=== PATIENT | female | born 1950 | race African-American/Black ===

== ENCOUNTER 2018-09-08 17:01 | Inpatient (IN) | payer MEDICARE ==
--- NOTE | 2018-09-08 17:25 | ED ---
Psychiatric Complaint - HPI Summary HPI Summary: A 67 y/o female brought in by [facility] and police presents to [facility] with a chief complaint of being brought in on a 9.41. The patient was reportedly found walking in traffic. In the ED the patient is manic. She is speaking extremely fast saying things like I know, you know, they know when asked questions. Sometimes she speaks so fast that she makes incoherent sounds. At triage she rated her pain as a 0/10 in severity. She reportedly is a patient of Dr. Groves for partial seizures. - History Of Current Complaint Chief Complaint: EDMentalHealth Time Seen by Provider: 09/08/18 17:19 Hx Obtained From: Patient, EMS Onset/Duration: Sudden Onset, Lasting Hours, Still Present Timing: Hours Severity Initially: Mild Severity Currently: Mild Character: Manic Aggravating Factor(s): Nothing Alleviating Factor(s): Nothing Associated Signs And Symptoms: Positive: Paranoid Behavior Related History: Positive For: Prior Psychiatric Issues Has Suicidal: Denies: Thoughts Has Homicidal: Denies: Thoughts - Allergies/Home Medications Allergies/Adverse Reactions: Allergies Allergy/AdvReac Type Severity Reaction Status Date / Time aspirin Allergy Edema Verified 09/08/18 17:06 PMH/Surg Hx/FS Hx/Imm Hx Cardiovascular History: Denies: Hx Pacemaker/ICD Musculoskeletal History: Denies: Hx Osteoporosis Sensory History: Denies: Hx Hearing Aid Neurological History: Reports: Hx Seizures Psychiatric History: Reports: Hx Anxiety, Hx Depression, Hx Inpatient Treatment Denies: Hx Panic Disorder - Surgical History Surgery Procedure, Year, and Place: Cyst removed from right breast in '70s, right eye cataract Infectious Disease History: No Infectious Disease History: Denies: Traveled Outside the [place] in Last 30 Days - Family History Known Family History: Positive: Hypertension - mother - Social History Alcohol Use: None Substance Use Type: Reports: None Smoking Status (MU): Heavy Every Day Tobacco Smoker Type: Cigarettes Review of Systems Negative: Fever Psychological: Other - positive: Pt brought in on a 9.41, manic, was walking through traffic All Other Systems Reviewed And Are Negative: Yes Physical Exam - Summary Physical Exam Summary: Appearance: The patient is well-nourished in no acute distress and in no acute pain. Skin: The skin is warm and dry and skin color reflects adequate perfusion. HEENT: The head is normocephalic and atraumatic. The pupils are equal and reactive. The conjunctivae are clear and without drainage. Nares are patent and without drainage. Mouth reveals moist mucous membranes and the throat is without erythema and exudate. The external ears are intact. The ear canals are patent and without drainage. The tympanic membranes are intact. Neck: The neck is supple with full range of motion and non-tender. There are no carotid bruits. There is no neck vein distension. Respiratory: Chest is non-tender. Lungs are clear to auscultation and breath sounds are symmetrical and equal. Cardiovascular: Heart is regular rate and rhythm. There is no murmur or rub auscultated. There is no peripheral edema and pulses are symmetrical and equal. Abdomen: The abdomen is soft and non-tender. There are normal bowel sounds heard in all four quadrants and there is no organomegaly palpated. Musculoskeletal: There is no back tenderness noted. Extremities are non-tender with full range of motion. There is good capillary refill. There is no peripheral edema or calf tenderness elicited. Neurological: Patient is alert and oriented to person, place and time. The patient has symmetrical motor strength in all four extremities. Cranial nerves are grossly intact. Deep tendon reflexes are symmetrical and equal in all four extremities. Psychiatric: The patient has an appropriate affect and does not exhibit any anxiety or depression. Triage Information Reviewed: Yes Vital Signs On Initial Exam: Initial Vitals Temp Pulse Resp BP Pulse Ox 98 F 105 18 162/135 97 09/08/18 17:06 09/08/18 17:06 09/08/18 17:06 09/08/18 17:06 09/08/18 17:06 Vital Signs Reviewed: Yes Diagnostics - Vital Signs Vital Signs Temp Pulse Resp BP Pulse Ox 09/08/18 17:06 98 F 105 18 162/135 97 - Laboratory Result Diagrams: 09/08/18 18:16 09/08/18 18:16 Lab Statement: Any lab studies that have been ordered have been reviewed, and results considered in the medical decision making process. Course/Dx - Course Course Of Treatment: Ms. Love was found walking in traffic and presented to the emergency department quite obviously manic. It was difficult to tell if she was delusional as she had more of word salad. She has a history of partial seizures as well as delusional thinking. I spoke with Dr. Cortez as I have no way of knowing of these are unusual seizures today or if this is a psychiatric problem. It does appear to be more of a psychiatric problem. I treated her with 2 mg of IM Ativan to see if this were a seizure if it would break and to help calm her down to make it easier to deal with her aunt and relief of some of her distress. She did calm down some better her mental status didn't really change leading me to believe this is more likely functional rather than seizure. Dr. Cortez agreed and at this point we are attempting to medically clear her with labs for a mental health eval. - Differential Dx/Clinical Impression Provider Diagnosis: Kyra - Physician Notifications Discussed Care Of Patient With: Alcides Cortez Time Discussed With Above Provider: 17:50 Instructed by Provider To: Other - Dr. Cortez was informed about the patient Discharge - Sign-Out/Discharge Documenting (check all that apply): Sign-Out Patient Signing out patient TO: Bk Carranza - pending MHE Patient Received Moderate/Deep Sedation with Procedure: No - Discharge Plan Condition: Stable Referrals: Re Clark MD [Primary Care Provider] - - Billing Disposition and Condition Condition: STABLE - Attestation Statements Document Initiated by Scribe: Yes Documenting Scribe: Nuno Conde Provider For Whom Bethibaleks is Documenting (Include Credential): Anil Layton MD Scribe Attestation: INuno, scribed for Anil Layton MD on 09/08/18 at 1849. Scribe Documentation Reviewed: Yes Provider Attestation: The documentation as recorded by the Nuno puente accurately reflects the service I personally performed and the decisions made by me, Anil Layton MD Status of Scribe Document: Viewed
[2018-09-08] MEDS ORDERED: LORazepam INJ* 2 MG/ML 1 ML VIAL IM ONE (17:29)
[2018-09-08 18:26] LABS: ABS Basophils 0 10^3/ul (0-0.2); ABS Eosinophils 0 10^3/ul (0-0.6); ABS Lymphocytes 1.1 10^3/ul (1.0-4.8); ABS Monocytes 0.9 10^3/ul (0-0.8); ABS Neutrophils 9.4 10^3/ul (1.5-7.7); ABS Nucleated RBC 0 10^3/ul; Eosinophil % 0 %; Hematocrit 43 % (33-41); Hemoglobin 14.8 g/dL (12.0-16.0); Lymphocyte % 9.9 %; Mean Corpuscular HGB Conc 34 g/dL (31-36); Mean Corpuscular Hemoglobin 31 pg (27-31); Mean Corpuscular Volume 89 fL (80-97); Mean Platelet Volume 6.9 fL (7.4-10.4); Nucleated Red Blood Cells % 0.1; Platelet Count 460 10^3/uL (150-450); Red Blood Count 4.86 10^6 /uL (3.70-4.87); Red Cell Distribution Width 16 % (10.5-15); White Blood Count 11.5 10^3/uL (3.5-10.8)
[2018-09-08 18:42] LABS: ALT 31 U/L (7-52); AST 96 U/L (13-39); Albumin 4.7 g/dL (3.2-5.2); Albumin/Globulin Ratio 1.5 (1-3); Alkaline Phosphatase 76 U/L (34-104); Anion Gap 12 mmol/L (2-11); Blood Urea Nitrogen 17 mg/dL (6-24); CO2 Carbon Dioxide 28 mmol/L (22-32); Calcium 10.5 mg/dL (8.6-10.3); Chloride 98 mmol/L (101-111); EGFR African American 58.1 (>60); Globulin 3.1 g/dL (2-4); Glucose 120 mg/dL (70-100); Potassium 3.7 mmol/L (3.5-5.0); Sodium 138 mmol/L (135-145); Total Protein 7.8 g/dL (6.4-8.9)
--- NOTE | 2018-09-08 19:06 | ED ---
Progress - Progress Note Progress Note: Receiving sign out from Dr. Layton at shift change, pending MHE. Pt's condition has been stable. She will be transferred to another psychiatric facility. Pt will be signed out to Dr. Hampton at shift change, pending transfer. Pt is agreeable with this plan. Course/Dx - Diagnoses Provider Diagnoses: Unspecified psychosis - Provider Notifications Discussed Care Of Patient With: Zora Yun Time Discussed With Above Provider: 01:15 Instructed by Provider To: Other - There are no beds available, so pt will be transferred to another psychiatric facility. Discharge - Sign-Out/Discharge Documenting (check all that apply): Sign-Out Patient, Receiving Sign-Out Signing out patient TO: Warner Hampton Receiving patient FROM: Anil Layton Patient Received Moderate/Deep Sedation with Procedure: No - Discharge Plan Condition: Stable Disposition: PSYCHIATRIC FACILITY-OTHER Referrals: Re Clark MD [Primary Care Provider] - - Billing Disposition and Condition Condition: STABLE Disposition: Psychiatric Facility Other - Attestation Statements Document Initiated by Scribe: Yes Documenting Scribe: Fe Baum Provider For Whom Scribe is Documenting (Include Credential): Bk Carranza MD Scribe Attestation: Fe Reyna, scribed for Bk Carranza MD on 09/09/18 at 0359. Scribe Documentation Reviewed: Yes Provider Attestation: The documentation as recorded by the Fe puente accurately reflects the service I personally performed and the decisions made by me, Bk Carranza MD Status of Scribe Document: Viewed
[2018-09-08 19:09] LABS: Acetaminophen < 15 mcg/mL; Alcohol < 10 mg/dL (<10); Salicylate < 2.50 mg/dL (<30)
[2018-09-08 19:22] LABS: TSH (Thyroid Stimulating Horm) 0.79 mcIU/mL (0.34-5.60)
--- NOTE | 2018-09-09 07:11 | ED ---
Progress - Progress Note Progress Note: This patient was signed out from Dr. Carranza to Dr. Hampton upon shift change, pending transfer to another psychiatric facility. - Consult/PCP Time Called: 00:30 Course/Dx - Course Course Of Treatment: This patient was signed out from Dr. Carranza to Dr. Hampton upon shift change, pending transfer to another psychiatric facility. - Diagnoses Provider Diagnoses: Unspecified psychosis - Provider Notifications Time Discussed With Above Provider: 01:15 Instructed by Provider To: Other - There are no beds available, so pt will be transferred to another psychiatric facility. Discharge - Sign-Out/Discharge Documenting (check all that apply): Patient Departure Patient Received Moderate/Deep Sedation with Procedure: No - Discharge Plan Condition: Stable Disposition: PSYCHIATRIC FACILITY-OTHER Referrals: Re Clark MD [Primary Care Provider] - - Billing Disposition and Condition Condition: STABLE Disposition: Psychiatric Facility Other - Attestation Statements Document Initiated by Scribe: Yes Documenting Scribe: Rob Childers Provider For Whom Scribe is Documenting (Include Credential): Warner Hampton MD Scribe Attestation: Rob Reyna, scribed for Warner Hampton MD on 09/09/18 at 0742. Scribe Documentation Reviewed: Yes Provider Attestation: The documentation as recorded by the Rob puente accurately reflects the service I personally performed and the decisions made by Warner trejo MD Status of Scribe Document: Viewed
[2018-09-09] MEDS ORDERED: OXcarbazepine TAB(*) 300 MG PO ONE (08:29)
--- NOTE | 2018-09-09 10:45 | PN ---
ED Flex Patient Progress Note Date of Service: 09/09/18 Subjective: 67 y.o. single, AA female with a history of schizophrenia brought in on involuntary .41 status after being discovered ambulating in the road in a disorganized state. She remains delusional, paranoid and unable to care for herself. Objective: aging AA female lying in bed in scrubs, disorganized, responding to internal stimuli Assessment: Schizophrenia Plan: Patient requires involuntary psychiatric admission but no adult beds are available on the [facility]. Will refer to outside .39 receiving facility. Vital Signs Temp Pulse Resp BP Pulse Ox 98.6 F 87 18 100/81 94 09/09/18 01:00 09/09/18 07:16 09/09/18 07:16 09/09/18 07:16 09/09/18 07:16 Lab Results - Entire Visit 09/08/18 09/08/18 18:16 18:16 WBC 11.5 H RBC 4.86 Hgb 14.8 Hct 43 H MCV 89 MCH 31 MCHC 34 RDW 16 H Plt Count 460 H MPV 6.9 L Neut % (Auto) 82.2 Lymph % (Auto) 9.9 Mcduffie % (Auto) 7.6 Eos % (Auto) 0 Baso % (Auto) 0.3 Absolute Neuts (auto) 9.4 H Absolute Lymphs (auto) 1.1 Absolute Monos (auto) 0.9 H Absolute Eos (auto) 0 Absolute Basos (auto) 0 Absolute Nucleated RBC 0 Nucleated RBC % 0.1 Sodium 138 Potassium 3.7 Chloride 98 L Carbon Dioxide 28 Anion Gap 12 H BUN 17 Creatinine 1.13 H Est GFR ( Amer) 58.1 Est GFR (Non-Af Amer) 48.0 BUN/Creatinine Ratio 15.0 Glucose 120 H Calcium 10.5 H Total Bilirubin 0.50 AST 96 H ALT 31 Alkaline Phosphatase 76 Total Protein 7.8 Albumin 4.7 Globulin 3.1 Albumin/Globulin Ratio 1.5 TSH 0.79 Salicylates < 2.50 Acetaminophen < 15 Serum Alcohol < 10
[2018-09-09] MEDS ORDERED: Nicotine Inhaler* 10 MG AMP INH ONE (13:11)
[2018-09-09] MEDS ORDERED: Mouth Piece, Nicotine* 1 EACH CARTRIDGE ONE (14:40)
--- NOTE | 2018-09-09 19:29 | ED ---
Progress - Progress Note Progress Note: RECEIVING SIGN-OUT FROM DR. HAMPTON AT SHIFT CHANGE PENDING TRANSFER TO ACCEPTING FACILITY. Patient will be signed out to Dr. Kaufman at shift change pending transfer to accepting facility. - Consult/PCP Time Called: 00:30 Re-Evaluation - Re-Evaluation 1st re-eval Re-Evaluation Time: 11:36 Change: Unchanged Comment: Pt did not want to receive medications, and that she does not know who Dr. Maldonado is. She also asked for a cigarette after receiving her two IM injections. Course/Dx - Course Course Of Treatment: RECEIVING SIGN-OUT FROM DR. HAMPTON AT SHIFT CHANGE PENDING TRANSFER TO ACCEPTING FACILITY. Patient will be signed out to Dr. Kaufman at shift change pending transfer to accepting facility. - Diagnoses Provider Diagnoses: Acute psychosis, Acute exacerbation of chronic schizophrenia Discharge - Sign-Out/Discharge Documenting (check all that apply): Sign-Out Patient, Receiving Sign-Out Signing out patient TO: Arline Kaufman - pending transfer Receiving patient FROM: Warner Hampton - pending transfer acceptance Patient Received Moderate/Deep Sedation with Procedure: No - Discharge Plan Condition: Stable Disposition: ADMITTED TO [facility] - Billing Disposition and Condition Condition: STABLE Disposition: Admitted to [facility] - Attestation Statements Document Initiated by Scribe: Yes Documenting Scribe: Hayes Montero Provider For Whom Scribe is Documenting (Include Credential): Dr. Anil Brownlee MD Scribe Attestation: Hayes Reyna scribed for Dr. Anil Brownlee MD on 09/10/18 at 1829. Scribe Documentation Reviewed: Yes Provider Attestation: The documentation as recorded by the Hayes puente accurately reflects the service I personally performed and the decisions made by me, Dr. Anil Brownlee MD Status of Scribe Document: Viewed
--- NOTE | 2018-09-10 08:09 | ED ---
Progress - Progress Note Progress Note: Pt is a signout from Dr. Brownlee 0700 09/10/18 pending transfer to accepting psychiatric facility for acute psychosis. Presently, pt is refusing to take the risperidone this am and refused it last pm, asked me twice who I am, and then stated you are not even a real doctor. The pt does not know why she was brought in, and uses meditation to calm her thoughts. Home Medications Medication Instructions Recorded Confirmed Type Calcium Carbonate/Vitamin D3 1 tab PO BID 09/08/18 09/08/18 History [Calcium 500 + Vit D Caplet] OXcarbazepine TAB(*) [Trileptal 1,200 mg PO BID 09/08/18 09/08/18 History 300 mg TAB(*)] Appearance: well-appearing, no pain distress, well-nourished Skin: Warm, color reflects adequate perfusion, dry Head: Normal Head/Face inspection, atraumatic Eyes: Conjunctiva clear ENT: Normal inspection Neck: Supple, no nodes, no JVD Respiratory: Lungs clear, normal breath sounds, no respiratory distress Cardio: RRR, No murmur, pulses normal, brisk capillary refill Abdomen: Soft, nontender Bowel sounds: Present Musculoskeletal: Strength Intact/ROM intact, no calf tenderness, no edema. Psychological: Confused, rambling, tangential speech, restless, adamant about refusing medication, demanding a cigarette Neuro: Alert, muscle tone normal, no focal deficit - Consult/PCP Time Called: 00:30 Re-Evaluation - Re-Evaluation 1st re-eval Re-Evaluation Time: 11:36 Change: Unchanged Comment: Pt did not want to receive medications, and states that she does not know who Dr. Maldonado is. She also asked for a cigarette after receiving her two IM injections, Haldol 5mg IM and Benadryl 50mg IM, per Dr. Maldonado . Course/Dx - Course Course Of Treatment: Pt is a signout from Dr. Brownlee at 0700 on 09/10/18, pending transfer to accepting psychiatric facility for acute psychosis. Presently, pt is refusing to take risperidone prescribed by Dr. Maldonado, asked me twice who I am, and then stated you are not even a real doctor. The pt does not know why she was brought in, and uses meditation to calm her thoughts. Per Dr. Maldonado, the pt will be given 5mg Haldol and 50mg Benadryl. This is not a restraint, and may be given against her will. Pt is being admitted on a 9.39 status to [facility], as now a bed has opened up at [facility], after was in the ED overnight. Pt is admitted with a dx of acute psychosis. As of 1135, the pt did not want to receive medications, and states she does not know who Dr. Maldonado is. She also asked for a cigarette after receiving her two IM injections, and then eventually did rest peacefully on the stretcher. - Diagnoses Provider Diagnoses: Acute psychosis, Acute exacerbation of chronic schizophrenia Discharge - Sign-Out/Discharge Documenting (check all that apply): Patient Departure, Receiving Sign-Out Receiving patient FROM: Anil Brownlee - 09/10/18, 0700 - Discharge Plan Condition: Stable Disposition: PSYCHIATRIC FACILITY-[facility] - Billing Disposition and Condition Condition: STABLE Disposition: Psychiatric Facility [facility] - Attestation Statements Document Initiated by Scribe: Yes Documenting Scribe: Sarah Mendez Provider For Whom Enioe is Documenting (Include Credential): Dr. Arline Kaufman MD. Scribe Attestation: ISarah, scribed for Dr. Arline Kaufman MD. on 09/13/18 at 0630. Scribe Documentation Reviewed: Yes Provider Attestation: The documentation as recorded by the scribeSarah accurately reflects the service I personally performed and the decisions made by me, Dr. Arline Kaufman MD. Status of Scribe Document: Viewed Consult Consult: 1102 - Spoke with Dr. Maldonado about the pt's present status. He recommended administering 5mg Haldol and 50mg Benadryl. This is not a restraint and may be given against the pt's will.
[2018-09-10] MEDS ORDERED: risperiDONE TAB* 1 MG ONE (09:05)
[2018-09-10] MEDS: risperiDONE TAB* 2 MG PO SCH ×4 (09:08→21:21)
[2018-09-10] MEDS: OXcarbazepine TAB(*) 300 MG PO SCH ×3 (09:10→21:22)
[2018-09-10] MEDS ORDERED: Haloperidol INJ IV/IM* 5 MG/ML AMP IM ONE (11:04)
[2018-09-10] MEDS ORDERED: diPHENhydraMINE IV* 50 MG/ML 1 ml VIAL (BENADRYL) IM ONE (11:05)
[2018-09-10] MEDS ORDERED: Acetaminophen TAB* 325 MG PO PRN (11:39)
[2018-09-10] MEDS ORDERED: Al Hydrox/Mg Hydrox/Simet LIQ* 30 ML UDC PO PRN (11:39)
[2018-09-10] MEDS ORDERED: Nicotine Inhaler* 10 MG AMP INH PRN (11:39)
[2018-09-10] MEDS ORDERED: Nicotine PATCH 21 MG/24 HR* PATCH TRANSDERM ONE (11:40)
[2018-09-10] MEDS ORDERED: Mouth Piece, Nicotine* 1 EACH CARTRIDGE INH PRN (11:44)
[2018-09-10] MEDS: Nicotine Patch Removal NOTE FOLLOW UP SCH (22:26)
[2018-09-11 08:08] LABS: HDL Cholesterol 59.6 mg/dL
[2018-09-11] MEDS: OXcarbazepine TAB(*) 300 MG PO SCH ×2 (10:59→21:42)
[2018-09-11] MEDS: risperiDONE TAB* 2 MG PO SCH (10:59)
--- NOTE | 2018-09-11 17:11 | HP ---
Amended report to enter cosigning physician. HISTORY AND PHYSICAL: DATE OF ADMISSION: 09/11/18 PROVIDER: Aaliyah Ayers NP in Psychiatry. SUPERVISING PHYSICIAN: Gilbert Maldonado MD* (dictated by Aaliyah Ayers NP). JUSTIFICATION FOR ADMISSION: The patient is in need of 24-hour supervision and care secondary to gross disorganization. CHIEF COMPLAINT: Are you confused? "Maybe." HISTORY OF PRESENT ILLNESS: Jami is a 67-year-old single black woman with a history of schizophrenia who arrives brought in by the police and is here on a 9.39 status after being found walking around in the street and yelling at people. Jami is known to this unit. She was last here several years ago in 2009. Jami is not able to give a good history of what has happened to her recently. She states that she believes she lives on [address] when in fact she lives in [facility]. She does state she is not suicidal or homicidal. She states she has seizures occasionally and she does indeed have a seizure disorder for which she sees Dr. Potter. Jami is confused at this point. She has a hard time making any sense of what I am saying and can only answer briefly and gives details which appear to be confabulated. Dr. Cortez from neurology was consulted in the Emergency Department and determined that her presentation was psychiatric rather then seizure activity. Jami presented to the Emergency Department on 09/08/18 and was preparing to be transferred to another hospital but was admitted to this unit on 09/11/18. PAST PSYCHIATRIC HISTORY: She has been admitted to this hospital many times: twice in 1999, four times in 2000, three times in 2001, then once in 2006, once in 2008, once in 2009 and now in 2019. She is seen by Dr. Love at the [facility]. She is also seen by Cirilo Mckee RN. She does not remember Zoran Mckee, but I did speak to him and he states that she stopped taking medications about 2-1/2 years ago because she hated taking the injectable, what she was taking at the time was 50 mg every month of Haldol Decanoate, which was effective. She is not taking psychiatric medication at this time, but is taking 1500 mg of Trileptal daily for seizures and is managed by Dr. Potter. SOCIAL HISTORY: The social history is taken from prior history and physical in 2010. Jami graduated from high school. She went to college in [place] and then a different college in [employer] [facility]. She states her major was chemistry , math and physics. (Her education is validated by Zoran Mckee RN at the [facility]) At some point, she went to [employer] for 2 years to study as she wanted to go to a socialist country. She does not remember ever being in this hospital. She is unable to attend to many questions and tends to fall asleep periodically. Her insight is fair. Her speech is coherent, but limited. She smiles. Her affect is appropriate. She does not understand why she is here, how she got here. She is not employed. She is not . She does not have children. There are no legal charges pending against her. REVIEW OF SYMPTOMS: Jami reports feeling fatigued. She denies shortness of breath, heat or cold intolerance, chest pain or abdominal pain. She denies neurological symptoms. She denies fevers or changes in weight. PHYSICAL EXAMINATION VITAL SIGNS: On 09/10/18 at 1654, temperature is 98.2, pulse 67, respirations 16, O2 sat on room air 99%, blood pressure 118/56. For further exam data, please see the emergency department records which reflects a typical exam with concerns about seizure activity, which is not currently active. DIAGNOSTIC STUDIES/LAB DATA: There are many abnormalities including white blood cells high at 11.5, hematocrit high at 43, RDW high at 16, platelet count high at 460, MPV low at 6.9, absolute neutrophils 9.4, absolute monocytes 0.9. Chloride is low at 98, anion gap is high at 12, creatinine is high at 1.13, glucose is high at 120. Hemoglobin A1c is high at 5.7. Calcium is high at 10.5. AST is high at 96. Triglycerides are 76, cholesterol is 211, LDL cholesterol is 136, HDL cholesterol is 59.6. TSH is 0.79. Urine sample was not provided. MENTAL STATUS EXAMINATION: Physical Description: Jami is an average to short woman of average build who is wearing blue paper scrubs with a plaid, blue sweater on top of them. She is pleasant to talk to and reasonable; however , she is falling asleep throughout the conversation and tends to deflect questions because she does not know the proper answer. Her speech is soft and slow. She appears to be euthymic. She has a full range of affect. Her thought processes are normal. It is unclear if she is having delusions or hallucinations. She states she is not homicidal or suicidal. Her insight is poor. Her judgment is also likely poor. She is alert and oriented x3. She is not alert and oriented to her situation. DIAGNOSES: By history, she has schizophrenia, she also has seizure disorder. IMPRESSION: Jami is a 67-year-old woman with a history of schizophrenia, who comes to the hospital following being picked up by police for running around in the streets and shouting at people. She has a history of seizures and may have had a seizure on 09/09/18, the day she was brought to the hospital. PLAN: The patient is admitted to the adult behavioral health unit and placed on q.15-minute checks for her own safety. She is encouraged to participate in supportive milieu, individual and group therapies. Estimated length of stay is 5 to 7 days. We will titrate Haldol to efficacy and monitor for mood and thought content. Discharge planning will include involvement of outpatient providers. AALIYAH AYERS, HALLIE [id number]/[facility] #: [id number] JONATHAN
[2018-09-11] MEDS: Haloperidol TAB* 5 MG PO SCH (21:46)
[2018-09-11] MEDS: Nicotine Patch Removal NOTE FOLLOW UP SCH (21:46)
[2018-09-12] MEDS: OXcarbazepine TAB(*) 300 MG PO SCH ×2 (09:22→22:26)
--- NOTE | 2018-09-12 17:19 | PN ---
Subjective - Subjective Date of Service: 09/12/18 Service Type: 65260 Hosp care 15 min low complexity Subjective: Troy is seen in weekend coverage for NPP, Aaliyah Ayers. The patient is vague, paranoid and guarded. She is adherent with oxcarbazapine therapy but refusing haloperidol. She denies SI and has no active complaints other than not being able to smoke inside the hospital. "These patches and sticks don't work. I need one real cigarette." Objective - General Observations Appearance: Unkempt Appears Stated Age: Yes Stature: Short Posture: Slumped Eye Contact: Average Behavior/Activity: WNL, Stereotyped - Interaction Observations Attitude Towards Examiner: Mistrustful Stated Mood: Dysphoric, Irritable Affect: Blunted Speech Pattern/Tone: Clear Thought Process: Goal Directed Perception: WNL Thought Content: Paranoid Thought Process: Lethality: Paranoid Ideation Hallucination Type: Auditory Delusion Type: Persecution - Cognitive Function Orientation: A&O x 4 Level of Consciousness: Awake Cognition: WNL Estimated Intelligence: Normal Insight: Difficulty Acknowledging Presence of Psyciatric Problems Judgment Within Normal Limits: No Ability to Make Reasonable Decisions: Serverely Impaired - Medication Compliance Cooperative with Inpatient Medication Regimen: Partial - Group Participation Participates in Group Activities: No Assessment - Assessment Merits Inpatient Hospitalization: For Immediate Safety, For Stabilization Inpatient DSM-V Dx: F20.9 Clinical Impression: 67 y.o. AA female with a history of epilepsy and schizophrenia admitted due to bizarre, unsafe behavior in the community such as walking in traffic and yelling at people. Plan - Plan Treatment Plan: Name: TROY VAUGHAN Birthdate: 1950 [id number] Start oxcarbazepine 1200mg PO qhs and haloperidol 5mg PO qhs. Needs further inpatient care. Continued Medication Management: Start Medication Medications: Current Medications Acetaminophen (Tylenol Tab*) 650 mg PO Q4H PRN PRN Reason: for pain; or Temp >101 F Al Hydrox/Mg Hydrox/Simethicone (Maalox Plus*) 30 ml PO Q4H PRN PRN Reason: INDIGESTION Device (Nicotine Mouth Piece*) 1 each INH .USE W/ CARTRIDGE PRN PRN Reason: WITHDRAWAL - NICOTINE Haloperidol (Haldol Tab*) 5 mg PO BEDTIME [facility] Last Admin: 09/11/18 21:46 Dose: Not Given Nicotine (Nicotine Inhaler*) 10 mg INH Q2H PRN PRN Reason: CRAVING Oxcarbazepine (Trileptal Tab(*)) 1,200 mg PO BID [facility] Last Admin: 09/12/18 09:22 Dose: 1,200 mg Pharmacy Profile Note (Nicotine Patch Removal Note*) 1 note FOLLOW UP 2100 [facility] Last Admin: 09/11/18 21:46 Dose: Not Given - Discharge Plan Discharge Plan: Inpatient Hospitalization Lab Results - Lab Results Lab Results: 09/11/18 09/11/18 07:38 07:38 Hemoglobin A1c 5.7 H Triglycerides 76 Cholesterol 211 LDL Cholesterol 136 HDL Cholesterol 59.6
[2018-09-12] MEDS: Nicotine Patch Removal NOTE FOLLOW UP SCH (22:25)
[2018-09-12] MEDS: Haloperidol TAB* 5 MG PO SCH (22:25)
[2018-09-13] MEDS: OXcarbazepine TAB(*) 300 MG PO SCH ×2 (10:28→22:22)
[2018-09-13] MEDS: Haloperidol TAB* 5 MG PO SCH (21:58)
[2018-09-13] MEDS: Nicotine Patch Removal NOTE FOLLOW UP SCH (22:25)
[2018-09-14] MEDS: OXcarbazepine TAB(*) 300 MG PO SCH (12:59)
--- NOTE | 2018-09-14 15:55 | PN ---
Subjective - Subjective Date of Service: 09/14/18 Service Type: 46205 Hosp care 25 min moderate complexity Subjective: Patient presents as confused about oxcarbemazepine dose and surroundings. She requests that someone (on staff) go with her to her appointment then return. She asks me if I'm going outside, as if she is going to join me, when I walk by another time. Since friday evening, she has only been taking a portion of the prescribed dose. RN clarified dose with outpatient pharmacy of 1200mg in am and 1500mg qhs; this was last filled on 09/04/18. Neonatal Intensive Care Nurse phoned office of Dr Potter and medication was confirmed, last office visit in december 2017. Neonatal Intensive Care Nurse notifies patient and she states that she is taking 100mg tabs, 4 in the morning and 5 at bedtime. Patient accepted oral haloperidol last evening. Objective - General Observations Appearance: Disheveled Stature: WNL Posture: WNL Eye Contact: Average Behavior/Activity: WNL - Interaction Observations Attitude Towards Examiner: Confused Stated Mood: Euthymic Affect: Full Speech Pattern/Tone: Clear, Appropriate, Normal Volume Thought Process: Disorganized, Impoverished Perception: WNL Thought Content: WNL Hallucination Type: Denies Delusion Type: Denies - Cognitive Function Orientation: Confused Level of Consciousness: Alert Cognition: WNL Estimated Intelligence: Normal Insight: Difficulty Acknowledging Presence of Psyciatric Problems Ability to Make Reasonable Decisions: Serverely Impaired - Medication Compliance Cooperative with Inpatient Medication Regimen: Partial - Group Participation Participates in Group Activities: Partial Assessment - Assessment Merits Inpatient Hospitalization: For Immediate Safety, For Stabilization Inpatient DSM-V Dx: F20.9 Clinical Impression: 67 y.o. AA female with a history of epilepsy and schizophrenia admitted due to bizarre, unsafe behavior in the community such as walking in traffic and yelling at people. Plan - Plan Treatment Plan: Name: TROY VAUGHAN Birthdate: 1950 [id number] continue acute intensive psychiatric treatment. increase hs oxcarbazepine dose to 1500mg. continue am dose fo 1200mg. continue haloperidol 5mg qhs. discharge planning to include outpatient providers Continued Medication Management: Start Medication Medications: Current Medications Acetaminophen (Tylenol Tab*) 650 mg PO Q4H PRN PRN Reason: for pain; or Temp >101 F Al Hydrox/Mg Hydrox/Simethicone (Maalox Plus*) 30 ml PO Q4H PRN PRN Reason: INDIGESTION Device (Nicotine Mouth Piece*) 1 each INH .USE W/ CARTRIDGE PRN PRN Reason: WITHDRAWAL - NICOTINE Last Admin: 09/12/18 23:47 Dose: 1 each Haloperidol (Haldol Tab*) 5 mg PO BEDTIME [facility] Last Admin: 09/13/18 21:58 Dose: 5 mg Nicotine (Nicotine Inhaler*) 10 mg INH Q2H PRN PRN Reason: CRAVING Last Admin: 09/12/18 23:47 Dose: 10 mg Oxcarbazepine (Trileptal Tab(*)) 1,200 mg PO BID [facility] Last Admin: 09/14/18 12:59 Dose: 1,200 mg Pharmacy Profile Note (Nicotine Patch Removal Note*) 1 note FOLLOW UP 2100 [facility] Last Admin: 09/13/18 22:25 Dose: Not Given - Discharge Plan Discharge Plan: Inpatient Hospitalization
[2018-09-14] MEDS ORDERED: OXcarbazepine TAB(*) 300 MG PO SCH (21:00)
[2018-09-14] MEDS: Nicotine Patch Removal NOTE FOLLOW UP SCH (21:40)
[2018-09-14] MEDS: Haloperidol TAB* 5 MG PO SCH (21:40)
[2018-09-15] MEDS ORDERED: OXcarbazepine TAB(*) 300 MG PO SCH ×2 (09:00→21:00)
--- NOTE | 2018-09-15 11:12 | PN ---
BSU: Group Therapy Note - Service Type Service Type: 66211 Group Psychotherapy - Cognitive Behavioral Group Therapy ( CBT):Patient presented in CBT programming as disorganized and disruptive in discussion and needed repeated redirection to attend to presented materials.
--- NOTE | 2018-09-15 15:03 | PN ---
Subjective - Subjective Date of Service: 09/15/18 Service Type: 04708 Hosp care 25 min moderate complexity Subjective: Troy does not like the idea of taking the medications that have been ordered for her. She would like to take what she believes to be her outpatient doses ( 600 mg of Trileptal BID). While the doses of 1200 mg QAM and 1500 mg QHS have been confirmed with Dr. Potter of neurology, Troy is currently unable to agree with his opinion as she is somewhat paranoid and also forgetful of what has happened. Restarting Troy on 1200 mg and 1500 mg of Trileptal could be dangerous due to the high dosages, so she will be restarted on 600 mg BID. Objective - General Observations Appearance: Disheveled Appears Stated Age: Yes Stature: WNL Posture: Slumped Eye Contact: Intense Behavior/Activity: Impulsive - Interaction Observations Attitude Towards Examiner: Anxious, Defensive, Mistrustful, Disrespectful Stated Mood: Dysphoric, Irritable, Anxious, Angry Affect: Labile Speech Pattern/Tone: Clear, Pressured Thought Process: Goal Directed Perception: WNL Thought Content: Paranoid Hallucination Type: None Delusion Type: Persecution - Cognitive Function Orientation: A&O x 4 Level of Consciousness: Awake, Alert Cognition: Impaired Memory, Impaired Fund of Knowledge Estimated Intelligence: Normal Insight: Difficulty Acknowledging Presence of Psyciatric Problems Judgment Within Normal Limits: No Ability to Make Reasonable Decisions: Moderately Impaired - Medication Compliance Cooperative with Inpatient Medication Regimen: No - Group Participation Participates in Group Activities: Partial Assessment - Assessment Merits Inpatient Hospitalization: For Immediate Safety Inpatient DSM-V Dx: F20.9 Clinical Impression: 67 y.o. AA female with a history of epilepsy and schizophrenia admitted due to bizarre, unsafe behavior in the community such as walking in traffic and yelling at people. Plan - Plan Treatment Plan: Name: TROY VAUGHAN Birthdate: 1950 [id number] continue acute intensive psychiatric treatment. discharge planning to include outpatient providers As it is unclear what dose of Trileptal Troy was previously on, she will "restart" on 600 mg BID. This may help her begin to regain some insight into what her regular dosage is and will possibly keep her from having seizures on our unit. We may begin raising the dose on Friday to 600 QAM and 1200 QHS. Continued Medication Management: Continue Outpt Medication Medications: Current Medications Acetaminophen (Tylenol Tab*) 650 mg PO Q4H PRN PRN Reason: for pain; or Temp >101 F Al Hydrox/Mg Hydrox/Simethicone (Maalox Plus*) 30 ml PO Q4H PRN PRN Reason: INDIGESTION Device (Nicotine Mouth Piece*) 1 each INH .USE W/ CARTRIDGE PRN PRN Reason: WITHDRAWAL - NICOTINE Last Admin: 09/12/18 23:47 Dose: 1 each Haloperidol (Haldol Tab*) 5 mg PO BEDTIME [facility] Last Admin: 09/14/18 21:40 Dose: Not Given Nicotine (Nicotine Inhaler*) 10 mg INH Q2H PRN PRN Reason: CRAVING Last Admin: 09/12/18 23:47 Dose: 10 mg Oxcarbazepine (Trileptal Tab(*)) 600 mg PO BEDTIME [facility] Oxcarbazepine (Trileptal Tab(*)) 600 mg PO DAILY [facility] Pharmacy Profile Note (Nicotine Patch Removal Note*) 1 note FOLLOW UP 2100 [facility] Last Admin: 09/14/18 21:40 Dose: Not Given - Discharge Plan Discharge Plan: Outpatient [facility]
[2018-09-15] MEDS: Nystatin CREAM* 30 GM TOPICAL SCH (20:52)
[2018-09-15] MEDS: Haloperidol TAB* 5 MG PO SCH (20:57)
[2018-09-15] MEDS: Nicotine Patch Removal NOTE FOLLOW UP SCH (20:57)
[2018-09-16 07:42] VITALS: BP 158/80
[2018-09-16] MEDS ORDERED: OXcarbazepine TAB(*) 300 MG PO SCH ×2 (09:00→21:00)
[2018-09-16] MEDS: Nystatin CREAM* 30 GM TOPICAL SCH ×2 (10:43→21:08)
--- NOTE | 2018-09-16 11:21 | PN ---
BSU: Group Therapy Note - Service Type Service Type: 08314 Group Psychotherapy - Cognitive Behavioral Group Therapy ( CBT):Patient presented in CBT programming as disorganized and disruptive in discussion and needed repeated redirection to attend to presented materials.
[2018-09-16] MEDS ORDERED: OXcarbazepine TAB(*) 300 MG PO ONE (14:00)
--- NOTE | 2018-09-16 14:07 | PN ---
Subjective - Subjective Date of Service: 09/16/18 Service Type: 45030 Hosp care 25 min moderate complexity Subjective: Jami sits by the windows and is cheerfully remarking about the view. She is pleasant and easy to converse with and apologizes for our strained interaction yesterday. We discuss Trileptal dosing and she's willing to go to 900 mg BID until her next Dr. Potter appointment. It seems she interprets psychotic moments as seizures and believes Haldol will be unhelpful as she never felt anything from it in the past. I suggested that she might have more thought clarity. She said she would take the medication under the supervision of Zoran Mckee RN at [facility], but this is not an option. She stated she would try the Haldol, but the conditions under which she would try them can't be met in the hospital. Still, we will offer Haldol PO. Objective - General Observations Appearance: Disheveled Appears Stated Age: Yes Stature: Overweight Posture: Slumped Eye Contact: Intense Behavior/Activity: WNL - Interaction Observations Attitude Towards Examiner: Cooperative, Ingratiating Stated Mood: Euthymic Affect: Full Speech Pattern/Tone: Clear Thought Process: Coherent, Goal Directed, Tangential Perception: WNL Thought Content: Paranoid Hallucination Type: None Delusion Type: Control - Cognitive Function Orientation: A&O x 4 Level of Consciousness: Awake, Alert, Appropriate Cognition: WNL Estimated Intelligence: Normal Insight: Difficulty Acknowledging Presence of Psyciatric Problems Judgment Within Normal Limits: No Ability to Make Reasonable Decisions: Mildly Impaired - Medication Compliance Cooperative with Inpatient Medication Regimen: Partial - Group Participation Participates in Group Activities: No Assessment - Assessment Merits Inpatient Hospitalization: For Immediate Safety Inpatient DSM-V Dx: F20.9 Clinical Impression: 67 y.o. AA female with a history of epilepsy and schizophrenia admitted due to bizarre, unsafe behavior in the community such as walking in traffic and yelling at people. BSU: Problem List - Patient Problems (1) Schizophrenia Current Visit: Yes Status: Acute Code(s): F20.9 - SCHIZOPHRENIA, UNSPECIFIED SNOMED Code(s): 75027162 Plan - Plan Treatment Plan: Name: JAMI VAUGHAN Birthdate: 1950 [id number] continue acute intensive psychiatric treatment. discharge planning to include outpatient providers As it is unclear what dose of Trileptal Jami was previously on, she will "restart" on 600 mg BID. This may help her begin to regain some insight into what her regular dosage is and will possibly keep her from having seizures on our unit. 09/16/18: Jami agrees to Trileptal 900 mg BID. She is declining Haldol at the current time, but has been out of the hospital for years and has been not taking Haldol for at least 2 years. We will send her home tomorrow with many appointments in place to keep her safe and healthy. Continued Medication Management: Continue Outpt Medication Medications: Current Medications Acetaminophen (Tylenol Tab*) 650 mg PO Q4H PRN PRN Reason: for pain; or Temp >101 F Al Hydrox/Mg Hydrox/Simethicone (Maalox Plus*) 30 ml PO Q4H PRN PRN Reason: INDIGESTION Device (Nicotine Mouth Piece*) 1 each INH .USE W/ CARTRIDGE PRN PRN Reason: WITHDRAWAL - NICOTINE Last Admin: 09/12/18 23:47 Dose: 1 each Haloperidol (Haldol Tab*) 5 mg PO BEDTIME [facility] Nicotine (Nicotine Inhaler*) 10 mg INH Q2H PRN PRN Reason: CRAVING Last Admin: 09/12/18 23:47 Dose: 10 mg Nystatin (Nystatin Cream*) 1 applic TOPICAL BID [facility] Last Admin: 09/16/18 10:43 Dose: Not Given Oxcarbazepine (Trileptal Tab(*)) 900 mg PO BEDTIME [facility] Oxcarbazepine (Trileptal Tab(*)) 900 mg PO DAILY [facility] Pharmacy Profile Note (Nicotine Patch Removal Note*) 1 note FOLLOW UP 2100 [facility] Last Admin: 09/15/18 20:57 Dose: Not Given - Discharge Plan Discharge Plan: Outpatient Follow Up Outpatient Program: [facility]
--- NOTE | 2018-09-16 16:25 | PN ---
BSU: Group Therapy Note - Service Type Service Type: [id number] Group Psychotherapy - Medication Education Group: Patient was attentive and participatory in group, and remained in good behavioral control. Patient expressed positive insights regarding relevant treatment interventions. Patient stated understanding of material discussed and had appropriate questions. Towards the end of group, patient vocal about conspiracy theories.
[2018-09-16] MEDS: Haloperidol TAB* 5 MG PO SCH ×2 (21:07→22:13)
[2018-09-16] MEDS: Nicotine Patch Removal NOTE FOLLOW UP SCH (21:10)
[2018-09-17] MEDS: Nystatin CREAM* 30 GM TOPICAL SCH (08:27)
[2018-09-17] MEDS ORDERED: OXcarbazepine TAB(*) 300 MG PO SCH (09:00)
[2018-09-17] MEDS ORDERED: Haloperidol Decanoate* 50 MG/ML AMP ONE (09:57)
[2018-09-17] MEDS ORDERED: Haloperidol Decanoate* 50 MG/ML AMP IM ONE (10:00)
--- NOTE | 2018-09-17 19:59 | DS ---
CC: [facility]; Dr. Potter; Dr. Clark * DISCHARGE SUMMARY: DATE OF ADMISSION: 09/10/18 DATE OF DISCHARGE: 09/17/18 PROVIDER: Aaliyah Ayers NP, in Psychiatry. SUPERVISING PHYSICIAN: Dr. Gilbert Maldonado.* (DICTATED BY AALIYAH AYERS NP ) DIAGNOSIS: Schizophrenia. CONDITION AT THE TIME OF DISCHARGE: Improved, psychiatrically cleared, stable. Jami participated in some groups, was largely isolative to herself. She has done well here psychiatrically. She did accept a Haldol Decanoate 50 mg injection. She will be attending [facility]. MENTAL STATUS EXAMINATION: At the time of discharge, Jami is calm, cooperative, and makes good eye contact. She is alert and oriented x4. Her grooming is good. Her speech pace is normal. Her thought processes are logical. She is delusional regarding electromagnetic waves, but she denies AH, VH, SI, and HI. Her insight is fair. Her judgment is good at this time. She is willing to follow up and she is urged to see her therapist, Zoran Mckee. DISCHARGE INSTRUCTIONS TO THE PATIENT: A. Medications: 1. Haldol Decanoate 50 mg every 28 days. 2. Nystatin cream topical, but she has declined this. It should have been b.i.d. 3. Trileptal 900 mg b.i.d. B. Diet is regular. C. Activities: As tolerated. Jami is a smoker, but she has declined a referral to the [facility] Smokers' Quitline at this time. If she decides to access this free service in the future, she can contact the quitline toll- free at [phone]. There are no studies pending at the time of discharge. D. Followup care: She has appointments with [facility] on 09/24/18 at 2 o'clock and at 2:30. She has an appointment at [facility] on 10/01/18 at 10:[address] Re Clark on 09/21/18 at 2:40 p.m. E. Substance abuse followup is not indicated. HOSPITAL COURSE: Part A: Chief complaint: Are you confused, "maybe." Jami is a 67-year-old black woman with a history of schizophrenia, who arrives, brought in by police and is there on a 9.39 status after being found walking around in the street and yelling at people. Jami is known to this unit. She was last here several years ago in 2009. Jami is not able to give a good history of what has happened to her recently. She states that she believes she lives [place] [address] when in fact she lives in [facility]. She does state she is not suicidal or homicidal. She states she has seizures occasionally and she does indeed have a seizure disorder for which she sees Dr. Potter. Jami is confused at this point. She has a hard time making sense of what I am saying and could only answer briefly and gives details which appeared to be confabulated. Dr. Cortez from Neurology was consulted in the emergency department and determined that her presentation was psychiatric rather than seizure activity. Jami presented to the emergency department on 09/08/18 and was preparing to be transferred to another hospital, but was admitted to this unit on 09/11/18. Part B: Psychiatric treatment was rendered. Jami was admitted to the adult behavioral unit and placed on 15-minute checks for safety. She did advance to 30- minute checks and staff pass privileges. Jami did well on the unit. She was seclusive to herself for the most part, but did come out for meals and interacted well with peers at that time. Jami had not been compliant with her medications in the outpatient setting and upon learning that her dose of Trileptal here would be 1200 mg in the morning and 1500 mg at night, she became quite upset, called me names, and asserted that I was lying. Although Jami had a strong reaction, she did eventually agree to take 600 mg twice a day and then the next day agreed to take 900 mg twice a day and to see Dr. Potter for her appointment later on in September. It was difficult to get Jami to take an antipsychotic. She does not believe she has a psychotic disorder. She believes that the electromagnetic radiation and waves in the air are altering things around her, none of which she can be particularly specific about other than to say that "You can't possibly understand." Still she keeps those beliefs under wraps for a good portion of most conversations and then reveals them and indicates that it is perfectly normal. Jami is now put back on an antipsychotic, Haldol Decanoate. Her hemoglobin A1c is 5.7, triglycerides are 76, cholesterol is 211, LDL cholesterol is 136, HDL cholesterol is 59.6. There were no consults entered for Jami. She is significantly improved. When she got here, she was confused, she was frightened and she was not making much sense. At this point, she is coherent and clear with the exception of the delusions about electromagnetic waves. AALIYAH AYERS, STATION INSTALLER AND REPAIRER [id number]/CPS #: [id number] JONATHAN
== END 2018-09-17 11:27 | disposition home or self-care (01) | DRG 885 ==
LOC: ED 17:01 → BSU 09-10 16:22
PROVIDERS: ADMIT Psychiatry & Neurology Psychiatry; ATTEND Psychiatry & Neurology Psychiatry
PROC: GZHZZZZ Group Psychotherapy (ICD-10-PCS; principal; 2018-09-15)
DX: F20.9 Schizophrenia, unspecified (principal); F41.9 Anxiety disorder, unspecified; F32.9 Major depressive disorder, single episode, unspecified; F17.210 Nicotine dependence, cigarettes, uncomplicated; G40.909 Epilepsy, unspecified, not intractable, without status epilepticus; Z98.41 Cataract extraction status, right eye; Z88.8 Allergy status to other drugs, medicaments and biological substances; Z82.49 Family history of ischemic heart disease and other diseases of the circulatory system; Z91.14 Patient's other noncompliance with medication regimen
CPT/HCPCS: 36415; 80053; 80061; 80320; 80329; 83036; 84443; 85025; 85660; 90853; 93005; 99222; 99231; 99232; 99238; 99285; A9270-GY; G0480; J1200; J1630; J1631; J2060

== ENCOUNTER 2019-03-08 12:02 | Emergency (ER) | payer MEDICAID, MEDICARE ==
[2019-03-08 12:48] LABS: ABS Basophils 0.1 10^3/ul (0-0.2); ABS Eosinophils 0.1 10^3/ul (0-0.6); ABS Monocytes 0.9 10^3/ul (0-0.8); ABS Neutrophils 5.5 10^3/ul (1.5-7.7); Eosinophil % 0.6 %; Hematocrit 40 % (35-47); Hemoglobin 13.9 g/dL (12.0-16.0); Lymphocyte % 23.8 %; Mean Corpuscular HGB Conc 35 g/dL (31-36); Mean Corpuscular Hemoglobin 32 pg (27-31); Mean Corpuscular Volume 90 fL (80-97); Mean Platelet Volume 7.1 fL (7.4-10.4); Nucleated Red Blood Cells % 0.1; Platelet Count 425 10^3/uL (150-450); Red Cell Distribution Width 16 % (10-15); White Blood Count 8.5 10^3/uL (3.5-10.8)
[2019-03-08 12:58] LABS: ALT 13 U/L (7-52); AST 18 U/L (13-39); Albumin 4.5 g/dL (3.2-5.2); Albumin/Globulin Ratio 1.6 (1-3); Alkaline Phosphatase 76 U/L (34-104); Anion Gap 14 mmol/L (2-11); BUN/Creatinine Ratio 26.6 (8-20); Blood Urea Nitrogen 25 mg/dL (6-24); CO2 Carbon Dioxide 26 mmol/L (22-32); Chloride 99 mmol/L (101-111); EGFR African American 71.7 (>60); EGFR Non-African American 59.2 (>60); Globulin 2.8 g/dL (2-4); Glucose 88 mg/dL (70-100); Potassium 3.2 mmol/L (3.5-5.0); Sodium 139 mmol/L (135-145); Total Protein 7.3 g/dL (6.4-8.9)
[2019-03-08 13:36] LABS: Acetaminophen < 15 mcg/mL; Alcohol < 10 mg/dL (<10); Salicylate < 2.50 mg/dL (<30)
[2019-03-08 13:36] LABS: Urine Appearance Cloudy; Urine Bacteria Absent (Absent); Urine Bilirubin Negative (Negative); Urine Blood Negative (Negative); Urine Color Amber; Urine Glucose Negative (Negative); Urine Ketones 1+ (Negative); Urine Nitrite Negative (Negative); Urine Protein 2+(100 mg/dL) (Negative); Urine Red Blood Cell Absent (Absent); Urine Squamous Epithelial Cell Present (Absent); Urine Urobilinogen Negative (Negative); Urine White Blood Cell Trace(0-5/hpf) (Absent)
[2019-03-08 13:50] LABS: TSH (Thyroid Stimulating Horm) 0.63 mcIU/mL (0.34-5.60)
[2019-03-08 13:55] LABS: Urine Benzodiazepine Screen None Detected (None Detect); Urine Opiates Screen None Detected (None Detect)
[2019-03-08 14:03] VITALS: BP 173/84
--- NOTE | 2019-03-08 17:28 | ED ---
Psychiatric Complaint - HPI Summary HPI Summary: This patient is a 68-year-old female who presents to the ED with acute psychosis. Patient states she has been having radioactive material around her apartment. She states Raz Gross has been spraying her apt with radioactive material and would like to be tested for this. She states she would like "I want" to test her for this. She denies any other symptoms. She denies taking any medication, denies smoking or alcohol history. Denies SI or HI. - History Of Current Complaint Chief Complaint: EDAltMentalStatus Time Seen by Provider: 03/08/19 12:04 Hx Obtained From: Patient ?: No Onset/Duration: Sudden Onset Timing: Constant Severity Initially: Moderate Severity Currently: Moderate Aggravating Factor(s): Nothing Alleviating Factor(s): Nothing Associated Signs And Symptoms: Positive: Hallucinating - Risk Factor(s) Completed Suicide Risk Factors: Negative - Allergies/Home Medications Allergies/Adverse Reactions: Allergies Allergy/AdvReac Type Severity Reaction Status Date / Time aspirin Allergy Edema Verified 03/09/19 00:08 PMH/Surg Hx/FS Hx/Imm Hx Previously Healthy: Yes Cardiovascular History: Denies: Hx Pacemaker/ICD Musculoskeletal History: Denies: Hx Osteoporosis Sensory History: Denies: Hx Contacts or Glasses, Hx Hearing Aid Opthamlomology History: Denies: Hx Contacts or Glasses Neurological History: Reports: Hx Seizures Psychiatric History: Reports: Hx Anxiety, Hx Depression, Hx Inpatient Treatment , Other Psychiatric Issues/Disorders Denies: Hx Panic Disorder - Surgical History Surgery Procedure, Year, and Place: Cyst removed from right breast in '70s, right eye cataract - Immunization History Hx Pertussis Vaccination: No Immunizations Up to Date: Yes Infectious Disease History: No Infectious Disease History: Denies: Traveled Outside the [place] in Last 30 Days - Family History Known Family History: Positive: Hypertension - mother - Social History Occupation: Employed Full-time Lives: Alone Alcohol Use: None Hx Substance Use: No Substance Use Type: Reports: None Hx Tobacco Use: Yes Smoking Status (MU): Heavy Every Day Tobacco Smoker Type: Cigarettes Review of Systems Negative: Fever, Chills, Fatigue, Skin Diaphoresis Negative: Palpitations, Chest Pain Negative: Shortness Of Breath, Cough Genitourinary: Negative Positive: no symptoms reported, see HPI Negative: Arthralgia, Myalgia Positive: Other - states her skin is radioactive Neurological: Negative All Other Systems Reviewed And Are Negative: Yes Physical Exam Triage Information Reviewed: Yes Vital Signs On Initial Exam: Initial Vitals Temp Pulse Resp BP Pulse Ox 97.7 F 82 16 174/102 96 03/08/19 12:11 03/08/19 12:11 03/08/19 12:11 03/08/19 12:11 03/08/19 12:11 Vital Signs Reviewed: Yes Appearance: Positive: Well-Appearing, Well-Nourished Skin: Positive: Skin Color Reflects Adequate Perfusion Head/Face: Positive: Normal Head/Face Inspection Eyes: Positive: EOMI Neck: Positive: Supple, No Lymphadenopathy Respiratory/Lung Sounds: Positive: Clear to Auscultation, Breath Sounds Present Cardiovascular: Positive: RRR, Pulses are Symmetrical in both Upper and Lower Extremities Musculoskeletal: Positive: Normal, Strength/ROM Intact Neurological: Positive: Alert, Oriented to Person Place, Time, Speech Normal Psychiatric: Positive: Other - hallucination behavior Diagnostics - Vital Signs Vital Signs Temp Pulse Resp BP Pulse Ox 03/08/19 15:11 97.6 F 77 16 173/84 99 03/08/19 14:01 97.6 F 77 16 173/84 99 03/08/19 12:11 97.7 F 82 16 174/102 96 - Laboratory Lab Results: Lab Results 03/08/19 03/08/19 03/08/19 Range/Units 12:26 12:26 13:20 WBC 8.5 (3.5-10.8) 10^3/uL RBC 4.40 (3.70-4.87) 10^6 /uL Hgb 13.9 (12.0-16.0) g/dL Hct 40 (35-47) % MCV 90 (80-97) fL MCH 32 H (27-31) pg MCHC 35 (31-36) g/dL RDW 16 H (10-15) % Plt Count 425 (150-450) 10^3/uL MPV 7.1 L (7.4-10.4) fL Neut % (Auto) 64.4 % Lymph % (Auto) 23.8 % [place] % (Auto) 10.2 % Eos % (Auto) 0.6 % Baso % (Auto) 1.0 % Absolute Neuts (auto) 5.5 (1.5-7.7) 10^3/ul Absolute Lymphs (auto) 2.0 (1.0-4.8) 10^3/ul Absolute Monos (auto) 0.9 H (0-0.8) 10^3/ul Absolute Eos (auto) 0.1 (0-0.6) 10^3/ul Absolute Basos (auto) 0.1 (0-0.2) 10^3/ul Absolute Nucleated RBC 0.0 10^3/ul Nucleated RBC % 0.1 Sodium 139 (135-145) mmol/L Potassium 3.2 L (3.5-5.0) mmol/L Chloride 99 L (101-111) mmol/L Carbon Dioxide 26 (22-32) mmol/L Anion Gap 14 H (2-11) mmol/L BUN 25 H (6-24) mg/dL Creatinine 0.94 (0.51-0.95) mg/dL Est GFR ( Amer) 71.7 (>60) Est GFR (Non-Af Amer) 59.2 (>60) BUN/Creatinine Ratio 26.6 H (8-20) Glucose 88 (70-100) mg/dL Calcium 10.0 (8.6-10.3) mg/dL Total Bilirubin 0.60 (0.2-1.0) mg/dL AST 18 (13-39) U/L ALT 13 (7-52) U/L Alkaline Phosphatase 76 (34-104) U/L Total Protein 7.3 (6.4-8.9) g/dL Albumin 4.5 (3.2-5.2) g/dL Globulin 2.8 (2-4) g/dL Albumin/Globulin Ratio 1.6 (1-3) TSH 0.63 (0.34-5.60) mcIU/mL Urine Color Estephanie Urine Appearance Cloudy Urine pH 5.0 (5-9) Ur Specific [place] 1.030 (1.010-1.030) Urine Protein 2+(100 mg/dl) A (Negative) Urine Ketones 1+ A (Negative) Urine Blood Negative (Negative) Urine Nitrate Negative (Negative) Urine Bilirubin Negative (Negative) Urine Urobilinogen Negative (Negative) Ur Leukocyte Esterase Negative (Negative) Urine WBC (Auto) Trace(0-5/hpf) (Absent) Urine RBC (Auto) Absent (Absent) Ur Squamous Epith Cells Present A (Absent) Urine Bacteria Absent (Absent) Hyaline Casts Present A (Absent) Urine Glucose Negative (Negative) Salicylates < 2.50 (<30) mg/dL Urine Opiates Screen (None Detect) Acetaminophen < 15 mcg/mL Ur Barbiturates Screen (None Detect) Ur Phencyclidine Scrn (None Detect) Ur Amphetamines Screen (None Detect) U Benzodiazepines Scrn (None Detect) Urine Cocaine Screen (None Detect) U Cannabinoids Screen (None Detect) Serum Alcohol < 10 (<10) mg/dL 03/08/19 Range/Units 13:20 WBC (3.5-10.8) 10^3/uL RBC (3.70-4.87) 10^6 /uL Hgb (12.0-16.0) g/dL Hct (35-47) % MCV (80-97) fL MCH (27-31) pg MCHC (31-36) g/dL RDW (10-15) % Plt Count (150-450) 10^3/uL MPV (7.4-10.4) fL Neut % (Auto) % Lymph % (Auto) % [place] % (Auto) % Eos % (Auto) % Baso % (Auto) % Absolute Neuts (auto) (1.5-7.7) 10^3/ul Absolute Lymphs (auto) (1.0-4.8) 10^3/ul Absolute Monos (auto) (0-0.8) 10^3/ul Absolute Eos (auto) (0-0.6) 10^3/ul Absolute Basos (auto) (0-0.2) 10^3/ul Absolute Nucleated RBC 10^3/ul Nucleated RBC % Sodium (135-145) mmol/L Potassium (3.5-5.0) mmol/L Chloride (101-111) mmol/L Carbon Dioxide (22-32) mmol/L Anion Gap (2-11) mmol/L BUN (6-24) mg/dL Creatinine (0.51-0.95) mg/dL Est GFR ( Amer) (>60) Est GFR (Non-Af Amer) (>60) BUN/Creatinine Ratio (8-20) Glucose (70-100) mg/dL Calcium (8.6-10.3) mg/dL Total Bilirubin (0.2-1.0) mg/dL AST (13-39) U/L ALT (7-52) U/L Alkaline Phosphatase (34-104) U/L Total Protein (6.4-8.9) g/dL Albumin (3.2-5.2) g/dL Globulin (2-4) g/dL Albumin/Globulin Ratio (1-3) TSH (0.34-5.60) mcIU/mL Urine Color Urine Appearance Urine pH (5-9) Ur Specific [place] (1.010-1.030) Urine Protein (Negative) Urine Ketones (Negative) Urine Blood (Negative) Urine Nitrate (Negative) Urine Bilirubin (Negative) Urine Urobilinogen (Negative) Ur Leukocyte Esterase (Negative) Urine WBC (Auto) (Absent) Urine RBC (Auto) (Absent) Ur Squamous Epith Cells (Absent) Urine Bacteria (Absent) Hyaline Casts (Absent) Urine Glucose (Negative) Salicylates (<30) mg/dL Urine Opiates Screen None detected (None Detect) Acetaminophen mcg/mL Ur Barbiturates Screen None detected (None Detect) Ur Phencyclidine Scrn None detected (None Detect) Ur Amphetamines Screen None detected (None Detect) U Benzodiazepines Scrn None detected (None Detect) Urine Cocaine Screen None detected (None Detect) U Cannabinoids Screen None detected (None Detect) Serum Alcohol (<10) mg/dL Result Diagrams: 03/08/19 12:26 03/08/19 12:26 Lab Statement: Any lab studies that have been ordered have been reviewed, and results considered in the medical decision making process. Course/Dx - Course Course Of Treatment: This patient presents to the ED ball with hallucinations, stating she is currently radioactive and would like someone to check her skin. Mental health examination performed she is diagnosed with schizophrenia with medication noncompliance. Patient is discharged in good condition and will f/u with her outpatient therapist. - Differential Dx/Clinical Impression Provider Diagnosis: Schizophrenia Discharge ED - Sign-Out/Discharge Documenting (check all that apply): Patient Departure Patient Received Moderate/Deep Sedation with Procedure: No - Discharge Plan Condition: Fair Disposition: HOME Patient Education Materials: Schizophrenia (ED) Referrals: [facility] [Outside] (Please follow up on 2018) Re Clark MD [Primary Care Provider] - - Billing Disposition and Condition Condition: FAIR Disposition: Home
== END 2019-03-08 15:00 | disposition home or self-care (01) ==
LOC: ED 12:02
DX: F20.9 Schizophrenia, unspecified (principal); F41.9 Anxiety disorder, unspecified; F32.9 Major depressive disorder, single episode, unspecified; F17.210 Nicotine dependence, cigarettes, uncomplicated; Z88.6 Allergy status to analgesic agent
CPT/HCPCS: 36415; 80053; 80307; 80320; 80329; 81003; 81015; 84443; 85025; 87086; 99283; G0480

== ENCOUNTER → 2019-03-08 15:53 | Emergency (ER) | payer MEDICAID, MEDICARE | END | disposition left against medical advice (07) | LOC: ED 15:53 | DX: Z53.21 Procedure and treatment not carried out due to patient leaving prior to being seen by health care provider (principal) ==

== ENCOUNTER 2019-03-08 23:56 | Emergency (ER) | payer MEDICAID, MEDICARE ==
[2019-03-09 01:00] LABS: ABS Basophils 0.1 10^3/ul (0-0.2); ABS Eosinophils 0.1 10^3/ul (0-0.6); ABS Lymphocytes 1.7 10^3/ul (1.0-4.8); ABS Monocytes 0.8 10^3/ul (0-0.8); ABS Neutrophils 4.8 10^3/ul (1.5-7.7); Eosinophil % 1.1 %; Hematocrit 36 % (35-47); Hemoglobin 12.6 g/dL (12.0-16.0); Lymphocyte % 23.1 %; Mean Corpuscular HGB Conc 35 g/dL (31-36); Mean Corpuscular Hemoglobin 31 pg (27-31); Mean Corpuscular Volume 91 fL (80-97); Mean Platelet Volume 6.8 fL (7.4-10.4); Nucleated Red Blood Cells % 0.2; Platelet Count 368 10^3/uL (150-450); Red Blood Count 4.01 10^6 /uL (3.70-4.87); Red Cell Distribution Width 16 % (10-15); White Blood Count 7.5 10^3/uL (3.5-10.8)
--- NOTE | 2019-03-09 01:02 | ED ---
Psychiatric Complaint - HPI Summary HPI Summary: The patient is a 68 y/o F arriving by ambulance to [facility] from [place] with chief complaint of sudden onset sensation of something crawling under her skin immediately [employer]. She reports she had been sleeping after coming home from the hospital earlier today when she woke up and had a feeling that there were bugs or snakes crawling under her skin. She is not experiencing the sensations now, and she denies any rashes. She additionally c/o SI, per nurse. Currently, her symptoms are rated 0/10 in severity. No recent illnesses. PMHx: epilepsy, anxiety, depression. Heavy every day cigarette smoker, no EtOH, no substance use. Medications reviewed. Allergies noted. - History Of Current Complaint Time Seen by Provider: 03/08/19 23:59 Hx Obtained From: Patient Onset/Duration: Sudden Onset, Still Present Timing: Minutes Severity Initially: Moderate Severity Currently: Moderate Character: Manic Aggravating Factor(s): Nothing Alleviating Factor(s): Nothing Associated Signs And Symptoms: Positive: Hallucinating Has Suicidal: Reports: Thoughts - Allergies/Home Medications Allergies/Adverse Reactions: Allergies Allergy/AdvReac Type Severity Reaction Status Date / Time aspirin Allergy Edema Verified 03/10/19 15:28 PMH/Surg Hx/FS Hx/Imm Hx Endocrine/Hematology History: Denies: Hx Diabetes Cardiovascular History: Denies: Hx Pacemaker/ICD Musculoskeletal History: Denies: Hx Osteoporosis Sensory History: Denies: Hx Contacts or Glasses, Hx Hearing Aid Opthamlomology History: Denies: Hx Contacts or Glasses Neurological History: Reports: Hx Seizures Psychiatric History: Reports: Hx Anxiety, Hx Depression, Hx Inpatient Treatment , Other Psychiatric Issues/Disorders Denies: Hx Panic Disorder - Surgical History Surgical History: Yes Surgery Procedure, Year, and Place: Cyst removed from right breast in '70s, right eye cataract Infectious Disease History: No Infectious Disease History: Denies: Traveled Outside the [place] in Last 30 Days - Family History Known Family History: Positive: Hypertension - mother - Social History Alcohol Use: None Hx Substance Use: No Substance Use Type: Reports: None Hx Tobacco Use: Yes Smoking Status (MU): Heavy Every Day Tobacco Smoker Type: Cigarettes Review of Systems Negative: Rash Psychological: Other - sensation of bugs crawling under skin, SI All Other Systems Reviewed And Are Negative: Yes Physical Exam - Summary Physical Exam Summary: Appearance: Well-appearing, Well-nourished, lying in bed comfortably Skin: Warm, dry, no obvious rash Eyes: sclera anicteric, no conjunctival pallor ENT: mucous membranes moist, pharynx appears normal Neck: Supple, nontender Respiratory: Clear to auscultation, no signs of respiratory distress Cardiovascular: Normal S1, S2. No murmurs. Normal distal pulses in tibial and radial bilaterally. Abdomen: Soft, nontender, normal active bowel sounds present Musculoskeletal: Normal, Strength/ROM Intact Neurological: A&Ox3, awake and alert, mentation is normal, speech is fluent and appropriate Psychiatric: Thought process is disjointed and tangential, Appears somewhat manic, Is suffering from delusions of insects of snakes crawling under her skin Triage Information Reviewed: Yes Vital Signs On Initial Exam: Initial Vitals Temp Pulse Resp BP Pulse Ox 97.9 F 69 16 171/90 97 03/09/19 00:01 03/09/19 00:01 03/09/19 00:01 03/09/19 00:01 03/09/19 00:01 Vital Signs Reviewed: Yes Diagnostics - Vital Signs Vital Signs Temp Pulse Resp BP Pulse Ox 03/09/19 00:01 97.9 F 69 16 171/90 97 - Laboratory Result Diagrams: 03/09/19 00:52 03/09/19 00:52 Lab Statement: Any lab studies that have been ordered have been reviewed, and results considered in the medical decision making process. Re-Evaluation - Re-Evaluation First Eval Re-Evaluation Time: 00:10 Change: Unchanged Comment: Pt is medically clear for MHE. Course/Dx - Course Course Of Treatment: Pt is a 68 y/o F with cc of sudden onset sensations of insects and snakes under the skin tonight. Upon physical exam, the pt appears to have a disjointed and tangential thought process and seems manic as she is suffering from delusions of insects of snakes crawling under her skin. Blood work reveals RDW of 16, MPV of 6.8, potassium of 2.8, BUN/creatinine of 31.2, and glucose of 104 but results are otherwise unremarkable. Toxicology report is negative for salicylates, acetaminophen, and serum alcohol. Pt is medically clear for MHE at 0010. MHE performed, and Bri Rdz reports Dr. Jackson, psychiatry, has cleared pt for discharge with dx of tactile hallucinations and plan for outpatient treatment. Pt noted to be at baseline. She understands and agrees with plan. Mental health staff will d/c pt. - Differential Dx/Clinical Impression Provider Diagnosis: Tactile hallucinations - Physician Notifications Discussed Care Of Patient With: Bri Rdz - mental health printing table worker Time Discussed With Above Provider: 03:40 Instructed by Provider To: Other - Bri reports that Dr. Jackson, psychiatry agrees with d/c with dx of tactile hallucinations and plan for outpatient treatment. Discharge ED - Sign-Out/Discharge Documenting (check all that apply): Patient Departure - Patient will be discharged home. Patient Received Moderate/Deep Sedation with Procedure: No - Discharge Plan Condition: Stable Disposition: HOME Patient Education Materials: Psychiatric Hallucinations (ED) Referrals: Re Clark MD [Medical Doctor] - - Billing Disposition and Condition Condition: STABLE Disposition: Home - Attestation Statements Document Initiated by Scribe: Yes Documenting Scribe: Mitzi Tracy Provider For Whom Ranjan is Documenting (Include Credential): Dr. Anil Brownlee MD Scribe Attestation: Mitzi Reyna scribed for Dr. Anil Brownlee MD on 03/14/19 at 1220. Scribe Documentation Reviewed: Yes Provider Attestation: The documentation as recorded by the Mitzi puente accurately reflects the service I personally performed and the decisions made by me, Dr. Anil Brownlee MD Status of Scribe Document: Viewed
[2019-03-09 01:23] LABS: ALT 12 U/L (7-52); AST 17 U/L (13-39); Albumin 3.9 g/dL (3.2-5.2); Albumin/Globulin Ratio 1.6 (1-3); Alkaline Phosphatase 63 U/L (34-104); Anion Gap 9 mmol/L (2-11); BUN/Creatinine Ratio 31.2 (8-20); Blood Urea Nitrogen 24 mg/dL (6-24); CO2 Carbon Dioxide 26 mmol/L (22-32); Calcium 8.8 mg/dL (8.6-10.3); Chloride 105 mmol/L (101-111); EGFR African American 90.2 (>60); EGFR Non-African American 74.5 (>60); Globulin 2.5 g/dL (2-4); Glucose 104 mg/dL (70-100); Potassium 2.8 mmol/L (3.5-5.0); Sodium 140 mmol/L (135-145); Total Protein 6.4 g/dL (6.4-8.9)
[2019-03-09 01:30] LABS: Acetaminophen < 15 mcg/mL; Alcohol < 10 mg/dL (<10); Salicylate < 2.50 mg/dL (<30)
[2019-03-09 01:46] LABS: TSH (Thyroid Stimulating Horm) 0.46 mcIU/mL (0.34-5.60)
[2019-03-09 03:51] VITALS: BP 164/89
== END 2019-03-09 04:17 | disposition home or self-care (01) ==
LOC: ED 23:56
DX: R44.2 Other hallucinations (principal); F17.210 Nicotine dependence, cigarettes, uncomplicated; F41.9 Anxiety disorder, unspecified; F32.9 Major depressive disorder, single episode, unspecified
CPT/HCPCS: 36415; 80053; 80320; 80329; 84443; 85025; 99284; G0480

== ENCOUNTER 2019-03-10 15:19 | Inpatient (IN) | payer MEDICARE ==
--- NOTE | 2019-03-10 16:15 | ED ---
Psychiatric Complaint - HPI Summary HPI Summary: This patient is a 63 year old F presenting to ED with a chief complaint of hallucinations since weeks ago. Patient states she is able to disappear and become invisible. She thinks that people have been stealing her talent and methods of becoming invisible, and this makes her very upset. Patient denies SI/ HI, fever. The patient rates the pain 0/10 in severity. Symptoms aggravated by nothing. Symptoms alleviated by nothing. - History Of Current Complaint Chief Complaint: EDMentalHealth Time Seen by Provider: 03/10/19 15:39 Hx Obtained From: Patient Onset/Duration: Lasting Weeks, Still Present Timing: Constant Severity Initially: Mild Severity Currently: Mild Character: Angry Aggravating Factor(s): Nothing Alleviating Factor(s): Nothing Associated Signs And Symptoms: Positive: Hallucinating Related History: Positive For: Prior Psychiatric Issues Has Suicidal: Denies: Thoughts Has Homicidal: Denies: Thoughts - Allergies/Home Medications Allergies/Adverse Reactions: Allergies Allergy/AdvReac Type Severity Reaction Status Date / Time aspirin Allergy Edema Verified 03/10/19 15:28 Home Medications: Home Medications NK [No Home Medications Reported] 03/10/19 [History Confirmed 03/10/19] PMH/Surg Hx/FS Hx/Imm Hx Endocrine/Hematology History: Denies: Hx Diabetes Cardiovascular History: Denies: Hx Pacemaker/ICD Musculoskeletal History: Denies: Hx Osteoporosis Sensory History: Denies: Hx Contacts or Glasses, Hx Hearing Aid Opthamlomology History: Denies: Hx Contacts or Glasses Neurological History: Reports: Hx Seizures Psychiatric History: Reports: Hx Anxiety, Hx Depression, Hx Inpatient Treatment , Other Psychiatric Issues/Disorders Denies: Hx Eating Disorder, Hx Panic Disorder, Hx of Violent Episodes Against Others - Surgical History Surgery Procedure, Year, and Place: Cyst removed from right breast in '70s, right eye cataract Infectious Disease History: No Infectious Disease History: Denies: Traveled Outside the [place] in Last 30 Days - Family History Known Family History: Positive: Hypertension - mother - Social History Alcohol Use: None Hx Substance Use: No Substance Use Type: Reports: None Hx Tobacco Use: Yes Smoking Status (MU): Heavy Every Day Tobacco Smoker Type: Cigarettes Review of Systems Negative: Fever Psychological: Other - Negative SI/HI All Other Systems Reviewed And Are Negative: Yes Physical Exam - Summary Physical Exam Summary: VITAL SIGNS: Reviewed. GENERAL: Patient is a well-developed and nourished F who is lying comfortable in the stretcher. Patient is not in any acute respiratory distress. HEAD AND FACE: No signs of trauma. No ecchymosis, hematomas or skull depressions. No sinus tenderness. EYES: PERRLA, EOMI x 2, No injected conjunctiva, no nystagmus. EARS: Hearing grossly intact. Ear canals and tympanic membranes are within normal limits. MOUTH: Oropharynx within normal limits. NECK: Supple, trachea is midline, no adenopathy, no JVD, no carotid bruit, no c- spine tenderness, neck with full ROM. CHEST: Symmetric, no tenderness at palpation. LUNGS: Clear to auscultation bilaterally. No wheezing or crackles. CVS: Regular rate and rhythm, S1 and S2 present, no murmurs or gallops appreciated. ABDOMEN: Soft, non-tender. No signs of distention. No rebound, no guarding, and no masses palpated. Bowel sounds are normal. EXTREMITIES: FROM in all major joints, no edema, no cyanosis or clubbing. NEURO: Alert and oriented x 3. No acute neurological deficits. Speech is normal and follows commands. SKIN: Dry and warm. PSYCH: Depressed, quiet, and denies any suicidal thoughts or plan. No homicidal thoughts or plan. Triage Information Reviewed: Yes Vital Signs On Initial Exam: Initial Vitals Temp Pulse Resp BP Pulse Ox 98.1 F 76 17 147/78 98 03/10/19 15:25 03/10/19 15:25 03/10/19 15:25 03/10/19 15:25 03/10/19 15:25 Vital Signs Reviewed: Yes Diagnostics - Vital Signs Vital Signs Temp Pulse Resp BP Pulse Ox 03/10/19 15:25 98.1 F 76 17 147/78 98 - Laboratory Result Diagrams: 03/10/19 17:25 03/10/19 17:25 Lab Statement: Any lab studies that have been ordered have been reviewed, and results considered in the medical decision making process. Course/Dx - Course Assessment/Plan: Blood work w/o a significant abnormality. She is medically cleared. She is awaiting a MHE. Patient is hemodynamically stable and A+O x 3. Patient was signed out to Dr. Vicente at shift change at 1900 on 03/10/19 pending MHE. - Differential Dx/Clinical Impression Differential Diagnosis/HQI/PQRI: Positive: Acute Psychosis Provider Diagnosis: Psychosis Discharge ED - Sign-Out/Discharge Documenting (check all that apply): Sign-Out Patient Signing out patient TO: Marly Vicente - Discharge Plan Condition: Stable Disposition: PSYCHIATRIC FACILITY-[facility] - Attestation Statements Document Initiated by Scribe: Yes Documenting Scribe: Jason Armando Provider For Whom Scribe is Documenting (Include Credential): Say Rousseau MD Scribe Attestation: Jason eRyna, scribed for Say Rousseau MD on 03/11/19 at 1852. Scribe Documentation Reviewed: Yes Provider Attestation: The documentation as recorded by the Jason puente accurately reflects the service I personally performed and the decisions made by , Say Rousseau MD Status of Scribe Document: Viewed
[2019-03-10 17:33] LABS: ABS Eosinophils 0.2 10^3/ul (0-0.6); ABS Lymphocytes 2.5 10^3/ul (1.0-4.8); ABS Monocytes 0.6 10^3/ul (0-0.8); ABS Neutrophils 4.1 10^3/ul (1.5-7.7); Eosinophil % 2.1 %; Hematocrit 37 % (35-47); Hemoglobin 12.6 g/dL (12.0-16.0); Lymphocyte % 33.8 %; Mean Corpuscular HGB Conc 34 g/dL (31-36); Mean Corpuscular Hemoglobin 31 pg (27-31); Mean Corpuscular Volume 91 fL (80-97); Nucleated Red Blood Cells % 0.2; Platelet Count 386 10^3/uL (150-450); Red Blood Count 4.03 10^6 /uL (3.70-4.87); Red Cell Distribution Width 16 % (10-15); White Blood Count 7.4 10^3/uL (3.5-10.8)
[2019-03-10 17:51] LABS: ALT 16 U/L (7-52); AST 17 U/L (13-39); Albumin 4.1 g/dL (3.2-5.2); Albumin/Globulin Ratio 1.6 (1-3); Alkaline Phosphatase 65 U/L (34-104); Anion Gap 8 mmol/L (2-11); BUN/Creatinine Ratio 17.5 (8-20); Blood Urea Nitrogen 11 mg/dL (6-24); CO2 Carbon Dioxide 30 mmol/L (22-32); Calcium 9.2 mg/dL (8.6-10.3); Chloride 104 mmol/L (101-111); EGFR African American 113.7 (>60); Globulin 2.5 g/dL (2-4); Glucose 100 mg/dL (70-100); Potassium 2.8 mmol/L (3.5-5.0); Sodium 142 mmol/L (135-145); Total Protein 6.6 g/dL (6.4-8.9)
[2019-03-10 18:00] LABS: Acetaminophen < 15 mcg/mL; Alcohol < 10 mg/dL (<10); Salicylate < 2.50 mg/dL (<30)
[2019-03-10 18:15] LABS: TSH (Thyroid Stimulating Horm) 0.26 mcIU/mL (0.34-5.60)
--- NOTE | 2019-03-10 19:09 | ED ---
Progress - Progress Note Progress Note: Pt is a sign-out from Dr. Rousseau to Dr. Vicente at 19:00 03/10/19 shift change. Pt transferred to the annex 19:28. At 21:48, transport coordinator Leigh reports that the patient's case was reviewed by Dr. Jackson, patient will be admitted to [facility] under 939 status with a Dx of psychosis. Course/Dx - Course Course Of Treatment: Pt is a sign-out from Dr. Rousseau to Dr. Vicente at 19:00 03/10 shift change. Pt transferred to the annex 19:28. At 21:48, transport coordinator Leigh reports that the patient's case was reviewed by Dr. Jackson, patient will be admitted to [facility] under 939 status with a Dx of psychosis. - Diagnoses Provider Diagnoses: Psychosis Discharge ED - Sign-Out/Discharge Documenting (check all that apply): Patient Departure - admit , Receiving Sign- Out Receiving patient FROM: Say Rousseau Patient Received Moderate/Deep Sedation with Procedure: No - Discharge Plan Condition: Stable Disposition: PSYCHIATRIC FACILITY-[facility] - Billing Disposition and Condition Condition: STABLE Disposition: Psychiatric Facility [facility] - Attestation Statements Document Initiated by Scribe: Yes Documenting Scribe: Mykel Ma Provider For Whom Bethibaleks is Documenting (Include Credential): Marly Vicente MD. Scribe Attestation: Mykel Reyna, scribed for Marly Vicente MD. on 03/10/19 at 2248. Scribe Documentation Reviewed: Yes Provider Attestation: The documentation as recorded by the Mykel puente accurately reflects the service I personally performed and the decisions made by mi, Marly Vicente MD. Status of Scribe Document: Viewed Consult Consult: At 21:48, transport coordinator Leigh reports that the patient's case was reviewed by Dr. Jackson, patient will be admitted to [facility] under 939 status with a Dx of psychosis.
[2019-03-11] MEDS ORDERED: Nicotine* 2MG (FRUIT FLAVOR) GUM PO PRN (00:54)
[2019-03-11] MEDS ORDERED: Acetaminophen TAB* 325 MG PO PRN (00:54)
[2019-03-11 08:56] LABS: HDL Cholesterol 61.2 mg/dL
[2019-03-11] MEDS ORDERED: OXcarbazepine TAB(*) 300 MG PO SCH (10:00)
[2019-03-11] MEDS ORDERED: OXcarbazepine TAB(*) 300 MG PO ONE (10:23)
[2019-03-11] MEDS: Multivitamins/Minerals TAB PO SCH (11:07)
[2019-03-11] MEDS: Nicotine PATCH 21 MG/24 HR* PATCH TRANSDERM SCH (11:07)
[2019-03-11] MEDS: Al Hydrox/Mg Hydrox/Simet LIQ* 30 ML UDC PO PRN ×2 (12:34→17:31)
[2019-03-11] MEDS: Calcium Citrate TAB* 200 MG PO SCH (12:35)
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
[2019-03-11] MEDS: OXcarbazepine TAB(*) 300 MG PO SCH (20:04)
[2019-03-11] MEDS ORDERED: Nicotine Patch Removal NOTE PATCH OFF SCH (21:00)
[2019-03-12] MEDS: OXcarbazepine TAB(*) 300 MG PO SCH (08:39)
[2019-03-12] MEDS: Calcium Citrate TAB* 200 MG PO SCH (08:39)
[2019-03-12] MEDS ORDERED: Pneumococcal *Vac Polyvalent 0.5 ML VIAL IM ONE (09:00)
[2019-03-12] MEDS ORDERED: Influenza VAC *QUAD* 2019-20* 0.5 ML SYRINGE IM ONE (09:00)
[2019-03-12 09:09] VITALS: BP 182/70
[2019-03-12] MEDS: Nicotine PATCH 21 MG/24 HR* PATCH TRANSDERM SCH (09:33)
[2019-03-12] MEDS: Multivitamins/Minerals TAB PO SCH (09:33)
[2019-03-12] MEDS ORDERED: Haloperidol Decanoate* 50 MG/ML AMP IM SCH (10:30)
--- NOTE | 2019-03-15 11:57 | DS ---
CC: [facility]; Yina Serna; Dr. Love * DISCHARGE SUMMARY: DATE OF ADMISSION: 03/10/19 DATE OF DISCHARGE: 03/12/19 PROVIDER: Aaliyah Ayers NP in psychiatry. SUPERVISING PHYSICIAN: Dr. Gilbert Maldonado.* (DICTATED BY AALIYAH AYERS NP ) DIAGNOSIS: Schizophrenia. CONDITION AT THE TIME OF DISCHARGE: Improved, psychiatrically cleared, stable. Jami did not participate in groups, but was mildly social with peers. She is agreeable to being discharged. She has done well here psychiatrically, improving due to good sleep. She did tolerate the injection of Haldol decanoate 50 mg well. She is being referred to [facility]. MENTAL STATUS EXAM: At the time of discharge, Jami is calm, cooperative, and makes good eye contact. She is alert and oriented x4. Her grooming is good. Her speech pace is normal. Her thought processes are not always logical , but she is safe. She is psychotic and delusional, but again, these have been issues for her for years and she remains safe, and she is safer with the addition of an antipsychotic. She denies suicidal and homicidal ideation. Her insight is poor. Her judgment is fair. She is willing to follow up and urged to see a therapist at [facility]. DISCHARGE INSTRUCTIONS TO THE PATIENT: A. Medications: 1. Haloperidol decanoate 50 mg q.28 days. Dispensed once on the day of discharge, which was 03/12/19. NEXT DUE APRIL 08. 2. Oxcarbazepine 1200 mg b.i.d. This is for seizure disorder. B. Diet is regular. C. Activities are as tolerated. She is a smoker, but she has declined a referral to the [place] [employer] Quit Line at this time. If she decides to access this free service in the future, she can contact the quit line toll free at . There are no studies pending at the time of discharge. D. Followup care: She has appointments at [facility] on 08/04 at 9:30 with Yina Serna. She has a followup appointment with Dr. Love on 03/18/19 at 2:30 p.m. She is also recommended to follow up with her primary care provider within 30 days of discharge. E. Disposition: She is being discharged back to [facility], where she lives. F. Substance abuse followup is not indicated. HOSPITAL COURSE: Part A: Chief Complaint: "Male entities are sticking their organ in my ear or my nose." The patient is 68 years old. She states she is a black female with a history of schizoaffective disorder who arrives by ambulance and is here on a 9.39 status after coming to the emergency department 4 times on 03/08/19 and being unable to tolerate her own delusions any longer. Jami has a series of delusions including having entities, whom she says that she enjoys interacting with until she perceives that they are putting their penises in her ears, nose, and vagina. She states that she often enjoys interacting with these entities. She says that her ancestors sent her and her here on slave ships so that she and her could bear witness to events that are occurring right now. She is unable to be more specific about what these entities are. As she is talking during her pauses, she nods off and begins to snore a little bit. She says she is interested in going home today, if not then by Friday. She does not want to be here more than a week. She says she is willing to take her seizure medication, which is Trileptal, but she is not willing to take Haldol, either tablets or injections. Part B: Psychiatric treatment was rendered. Jami was admitted to the adult behavioral unit and placed on 15-minute checks for her own safety. Jami did well on the unit in that she was safe and in behavioral control. She interacted with peers reasonably well. She spent a lot of time in bed covered up and resting, which she noted was helpful. We discussed at some length the benefits of taking the Haldol decanoate injection. We discussed that the thoughts she was having that were so troublesome would be less intense and that she might feel less pressure in her mind to have these thoughts that are unwelcome. Eventually, Jami stated she would take the injection and on 03/12/19, she took 50 mg of Haldol decanoate by injection, which should last approximately 28 days. NEXT DUE APRIL 11. She stated, "I don't want to fight with you." She is agreeable to discharge. She remains delusional, but she states she feels much better having gotten sleep. She states in a manner that suggests a confession that she has "not slept well in years." She has not been following up with her neurologist, but states she is willing to take the medication for seizures (oxcarbazepine). She said her last seizure was 2 weeks ago. Jami remains disorganized, but is safe and states that she is feeling better. She is not suicidal. She is eager to go home and she asserts that she feels much better than she did upon admission. AALIYAH AYERS, HALLIE [id number]/[facility] #: [id number] JONATHAN
== END 2019-03-12 13:45 | disposition home or self-care (01) | DRG 885 ==
LOC: ED 15:19 → BSU 21:40
PROVIDERS: ADMIT Psychiatry & Neurology Psychiatry; ATTEND Psychiatry & Neurology Psychiatry
DX: F25.0 Schizoaffective disorder, bipolar type (principal); F17.210 Nicotine dependence, cigarettes, uncomplicated; F41.9 Anxiety disorder, unspecified; F32.9 Major depressive disorder, single episode, unspecified; Z98.41 Cataract extraction status, right eye; Z82.49 Family history of ischemic heart disease and other diseases of the circulatory system; Z88.8 Allergy status to other drugs, medicaments and biological substances
CPT/HCPCS: 36415; 80053; 80061; 80307; 80320; 80329; 81003; 81015; 83036; 84443; 85025; 87086; 99222; 99238; 99283; 99284; A9270-GY; G0480; J1631

== ENCOUNTER 2020-09-19 18:45 | Observation (INO) ==
[2020-09-19] MEDS ORDERED: Haloperidol 5 mg/ml SDV IV/IM 5 MG/ML AMP IM ONE (19:08)
[2020-09-19] MEDS ORDERED: LORazepam 2 mg VIAL 1 ml IM ONE (19:08)
[2020-09-19] MEDS ORDERED: diPHENhydraMINE IV 50 MG/ML 1 ml VIAL (BENADRYL) IM ONE (19:08)
[2020-09-19] MEDS ORDERED: LORazepam 2 mg VIAL 1 ml ONE (19:17)
[2020-09-19] MEDS ORDERED: diPHENhydraMINE IV 50 MG/ML 1 ml VIAL (BENADRYL) ONE (19:17)
[2020-09-19] MEDS ORDERED: Haloperidol 5 mg/ml SDV IV/IM 5 MG/ML AMP ONE (19:17)
[2020-09-19 21:49] LABS: ABS Eosinophils 0.1 10^3/ul (0-0.6); ABS Lymphocytes 1.7 10^3/ul (1.0-4.8); ABS Monocytes 0.8 10^3/ul (0-0.8); ABS Neutrophils 8.7 10^3/ul (1.5-7.7); Eosinophil % 0.7 %; Hematocrit 33 % (35-47); Hemoglobin 11.6 g/dL (12.0-16.0); Lymphocyte % 15.3 %; Mean Corpuscular HGB Conc 35 g/dL (31-36); Mean Corpuscular Hemoglobin 31 pg (27-31); Mean Corpuscular Volume 89 fL (80-97); Mean Platelet Volume 7.2 fL (7.4-10.4); Nucleated Red Blood Cells % 0.1; Platelet Count 342 10^3/uL (150-450); Red Blood Count 3.69 10^6 /uL (3.70-4.87); Red Cell Distribution Width 16 % (10-15); White Blood Count 11.4 10^3/uL (3.5-10.8)
[2020-09-19 22:07] LABS: ALT 69 U/L (7-52); AST 183 U/L (13-39); Albumin 3.9 g/dL (3.2-5.2); Albumin/Globulin Ratio 1.6 (1-3); Alkaline Phosphatase 65 U/L (34-104); Anion Gap 11 mmol/L (2-11); BUN/Creatinine Ratio 34.4 (8-20); Blood Urea Nitrogen 62 mg/dL (6-24); CO2 Carbon Dioxide 26 mmol/L (22-32); Chloride 99 mmol/L (101-111); EGFR African American 33.8 (>60); EGFR Non-African American 27.9 (>60); Globulin 2.4 g/dL (2-4); Glucose 112 mg/dL (70-100); Potassium 2.8 mmol/L (3.5-5.0); Sodium 136 mmol/L (135-145); Total Protein 6.3 g/dL (6.4-8.9)
[2020-09-19 22:08] LABS: Acetaminophen < 15 mcg/mL; Alcohol, S < 10 mg/dL (<10); Salicylate < 2.50 mg/dL (<30)
[2020-09-19 22:21] LABS: TSH Ultra Thyroid Stim Horm 0.45 mcIU/mL (0.34-5.60)
[2020-09-20 02:17] LABS: Urine Appearance Cloudy; Urine Bilirubin Negative (Negative); Urine Blood 3+ (Negative); Urine Color Yellow; Urine Glucose Negative (Negative); Urine Ketones Trace (Negative); Urine Nitrite Negative (Negative); Urine Protein 1+(30 mg/dL) (Negative); Urine Urobilinogen Negative (Negative)
[2020-09-20 02:19] LABS: Urine Benzodiazepine Screen None Detected (None Detect); Urine Cannabinoids Screen None Detected (None Detect); Urine Opiates Screen None Detected (None Detect)
[2020-09-20 02:34] LABS: Urine Bacteria 1+ (Absent); Urine Granular Casts Present (Absent); Urine Red Blood Cell Trace(0-2/hpf) (Absent); Urine Squamous Epithelial Cell Present (Absent); Urine White Blood Cell Trace(0-5/hpf) (Absent)
[2020-09-20] MEDS ORDERED: Potassium Chlor 20 meq TAB.ER PO ONE ×2 (03:02→07:01)
[2020-09-20] MEDS ORDERED: NS 0.9% 1000 ml BAG 1,000 ML IV ONE ×3 (03:04→07:11)
[2020-09-20] MEDS ORDERED: Lorazepam PYXIS KEY PRN (08:35)
[2020-09-20] MEDS ORDERED: LORazepam 2 mg VIAL 1 ml IV PUSH PRN (08:35)
[2020-09-20] MEDS ORDERED: Ondansetron 4 mg VIAL 2 MG/ML 2 ml VIAL IV PRN (09:00)
[2020-09-20 09:50] LABS: BUN/Creatinine Ratio 40.4 (8-20); Blood Urea Nitrogen 36 mg/dL (6-24); C Reactive Protein 76.13 mg/L (<8.01); CO2 Carbon Dioxide 24 mmol/L (22-32); Calcium 7.9 mg/dL (8.6-10.3); Chloride 105 mmol/L (101-111); EGFR African American 76.1 (>60); EGFR Non-African American 62.9 (>60); Glucose 166 mg/dL (70-100); Sodium 136 mmol/L (135-145)
[2020-09-20] MEDS ORDERED: Lactated Ringers 1000 ml BAG 1,000 ML IV SCH (10:00)
[2020-09-20 10:05] LABS: Anion Gap 7 mmol/L (2-11)
[2020-09-20] MEDS: Heparin 5000 UNITS/ML 1 mL VIAL SUBCUT SCH ×2 (13:07→21:09)
[2020-09-21] MEDS: Heparin 5000 UNITS/ML 1 mL VIAL SUBCUT SCH ×2 (05:27→13:13)
[2020-09-21 05:51] LABS: ABS Basophils 0.1 10^3/ul (0-0.2); ABS Eosinophils 0.4 10^3/ul (0-0.6); ABS Lymphocytes 1.8 10^3/ul (1.0-4.8); ABS Monocytes 0.8 10^3/ul (0-0.8); ABS Neutrophils 5.2 10^3/ul (1.5-7.7); Eosinophil % 4.4 %; Hematocrit 34 % (35-47); Hemoglobin 11.6 g/dL (12.0-16.0); Lymphocyte % 22.1 %; Mean Corpuscular HGB Conc 34 g/dL (31-36); Mean Corpuscular Hemoglobin 31 pg (27-31); Mean Corpuscular Volume 91 fL (80-97); Mean Platelet Volume 7.3 fL (7.4-10.4); Platelet Count 385 10^3/uL (150-450); Red Blood Count 3.77 10^6 /uL (3.70-4.87); Red Cell Distribution Width 16 % (10-15); White Blood Count 8.3 10^3/uL (3.5-10.8)
[2020-09-21 06:09] LABS: Albumin 3.8 g/dL (3.2-5.2); Albumin/Globulin Ratio 1.7 (1-3); BUN/Creatinine Ratio 26.5 (8-20); Calcium 8.8 mg/dL (8.6-10.3); EGFR African American 103.8 (>60); EGFR Non-African American 85.8 (>60); Globulin 2.3 g/dL (2-4); Potassium 3.6 mmol/L (3.5-5.0); Total Bilirubin 0.6 mg/dL (0.2-1.0); Total Protein 6.1 g/dL (6.4-8.9)
[2020-09-21 09:47] VITALS: BP 162/79
== END 2020-09-21 15:58 | disposition home or self-care (01) ==
LOC: ED 18:45 → MEDTELE 18:45
PROVIDERS: ADMIT Internal Medicine; ATTEND Student in an Organized Health Care Education/Training Program

== ENCOUNTER 2021-02-20 14:25 | Inpatient (IN) ==
[2021-02-20 17:44] LABS: ABS Basophils 0.1 10^3/ul (0-0.2); ABS Eosinophils 0.1 10^3/ul (0-0.6); ABS Lymphocytes 1.7 10^3/ul (1.0-4.8); ABS Monocytes 0.5 10^3/ul (0-0.8); Eosinophil % 1.5 %; Hematocrit 35 % (35-47); Hemoglobin 12.1 g/dL (12.0-16.0); Lymphocyte % 26.5 %; Mean Corpuscular HGB Conc 35 g/dL (31-36); Mean Corpuscular Hemoglobin 32 pg (27-31); Mean Corpuscular Volume 91 fL (80-97); Mean Platelet Volume 6.8 fL (7.4-10.4); Nucleated Red Blood Cells % 0.1; Platelet Count 371 10^3/uL (150-450); Red Cell Distribution Width 17 % (10-15); White Blood Count 6.4 10^3/uL (3.5-10.8)
[2021-02-20 18:00] LABS: ALT 14 U/L (7-52); AST 17 U/L (13-39); Albumin/Globulin Ratio 1.6 (1-3); Alkaline Phosphatase 75 U/L (35-149); Anion Gap 9 mmol/L (2-11); Blood Urea Nitrogen 14 mg/dL (6-24); CO2 Carbon Dioxide 30 mmol/L (22-32); Chloride 99 mmol/L (101-111); EGFR African American 77.9 (>60); EGFR Non-African American 64.4 (>60); Globulin 2.5 g/dL (2-4); Glucose 88 mg/dL (70-100); Potassium 2.8 mmol/L (3.5-5.0); Sodium 138 mmol/L (135-145); Total Protein 6.5 g/dL (6.4-8.9)
[2021-02-20] MEDS ORDERED: Iohexol 350 (CONTRAST) 500 ML MDV IV ONE (18:12)
[2021-02-20] MEDS ORDERED: Iodixanol (CONTRAST) 320 MG/ML 100 ML SDV IV ONE (18:12)
[2021-02-20 18:23] LABS: Alcohol, S < 13 mg/dL (<13)
[2021-02-20] MEDS ORDERED: Potassium Chlor 20 meq TAB.ER PO ONE (18:33)
[2021-02-20 20:59] LABS: Magnesium 1.8 mg/dL (1.9-2.7)
[2021-02-20] MEDS ORDERED: Magnesium Sulfate IV 1GM/100ML 1 GM/100 ML BAG IV ONE (22:14)
[2021-02-20] MEDS ORDERED: Potassium Chlor 10 meq TAB PO ONE (22:15)
[2021-02-20 22:59] LABS: Cholesterol 219 mg/dL; HDL Cholesterol 70.4 mg/dL; LDL Cholesterol 132 mg/dL; Triglycerides 83 mg/dL
[2021-02-20] MEDS: Enoxaparin 40 MG/0.4 ML SYR SUBCUT SCH (23:18)
[2021-02-21] MEDS ORDERED: Droperidol 5 MG/2 ML 2 ML VIAL IM ONE (02:05)
[2021-02-21] MEDS ORDERED: LORazepam 2 mg VIAL 1 ml IV PUSH ONE (03:11)
[2021-02-21] MEDS ORDERED: Lorazepam PYXIS KEY PRN (03:11)
[2021-02-21 06:56] LABS: ABS Basophils 0.1 10^3/ul (0-0.2); ABS Eosinophils 0.2 10^3/ul (0-0.6); ABS Lymphocytes 1.7 10^3/ul (1.0-4.8); ABS Monocytes 0.6 10^3/ul (0-0.8); ABS Neutrophils 3.6 10^3/ul (1.5-7.7); Eosinophil % 3.2 %; Hematocrit 33 % (35-47); Hemoglobin 11.6 g/dL (12.0-16.0); Lymphocyte % 27.9 %; Mean Corpuscular HGB Conc 35 g/dL (31-36); Mean Corpuscular Hemoglobin 32 pg (27-31); Mean Corpuscular Volume 91 fL (80-97); Mean Platelet Volume 6.9 fL (7.4-10.4); Nucleated Red Blood Cells % 0.1; Platelet Count 353 10^3/uL (150-450); Red Blood Count 3.65 10^6 /uL (3.70-4.87); Red Cell Distribution Width 17 % (10-15); White Blood Count 6.1 10^3/uL (3.5-10.8)
[2021-02-21 07:12] LABS: Calcium 8.5 mg/dL (8.6-10.3); EGFR African American 82.2 (>60); Potassium 3.3 mmol/L (3.5-5.0)
[2021-02-21] MEDS ORDERED: Potassium Chlor 10 meq TAB PO ONE (07:34)
[2021-02-21 11:37] LABS: TSH Ultra Thyroid Stim Horm 0.28 mcIU/mL (0.34-5.60)
[2021-02-21 15:49] LABS: Urine Appearance Cloudy; Urine Bilirubin Negative (Negative); Urine Blood Negative (Negative); Urine Color Yellow; Urine Glucose Negative (Negative); Urine Ketones Negative (Negative); Urine Nitrite Negative (Negative); Urine Protein Negative (Negative); Urine Urobilinogen Negative (Negative)
[2021-02-21 16:11] LABS: Urine Benzodiazepine Screen None Detected (None Detect); Urine Cannabinoids Screen None Detected (None Detect); Urine Opiates Screen None Detected (None Detect)
[2021-02-21] MEDS: Enoxaparin 40 MG/0.4 ML SYR SUBCUT SCH (21:05)
[2021-02-22 06:11] LABS: Calcium 8.5 mg/dL (8.6-10.3); EGFR African American 124.4 (>60); EGFR Non-African American 102.8 (>60); Magnesium 1.9 mg/dL (1.9-2.7)
[2021-02-22] MEDS: Enoxaparin 40 MG/0.4 ML SYR SUBCUT SCH ×2 (20:12→20:18)
[2021-02-22] MEDS: hydrALAZINE 20 mg/ml 1 ML Vial IV IV SLOW PU PRN (20:12)
[2021-02-23] MEDS: hydrALAZINE 20 mg/ml 1 ML Vial IV IV SLOW PU PRN ×2 (05:12→19:39)
[2021-02-23] MEDS: Enoxaparin 40 MG/0.4 ML SYR SUBCUT SCH (20:29)
[2021-02-24 06:06] LABS: EGFR African American 124.4 (>60); EGFR Non-African American 102.8 (>60); Potassium 3.7 mmol/L (3.5-5.0)
[2021-02-24 14:56] VITALS: BP 148/57
== END 2021-02-24 16:30 | disposition home or self-care (01) | DRG 917 ==
LOC: ED 14:25 → MEDTELE 14:25 → SUATTDRO 22:11
PROVIDERS: ADMIT Student in an Organized Health Care Education/Training Program; ATTEND Internal Medicine

== ENCOUNTER 2023-10-13 11:02 | Inpatient (IN) ==
[2023-10-13 13:18] LABS: ABS Basophils 0.1 10^3/uL (0.0-0.1); ABS Lymphocytes 0.7 10^3/uL (1.0-4.8); ABS Monocytes 0.4 10^3/uL (0.0-0.9); ABS Neutrophils 3.8 10^3/uL (1.5-7.6); Eosinophil % 0.5 %; Hematocrit 38.4 % (35-45); Hemoglobin 12.6 g/dL (11.5-14.3); Lymphocyte % 13.4 %; Mean Corpuscular Hemoglobin 30.1 pg (27-33); Mean Corpuscular Hgb Conc 32.9 g/dL (31-36); Mean Corpuscular Volume 91.5 fL (80-97); Mean Platelet Volume 7.2 fL (7.5-11.2); Nucleated Red Blood Cells % 0.1 %/100WBC (0.0-0.8); Platelet Count 333 10^3/uL (150-450); Red Cell Distribution Width 18.2 % (12-17); White Blood Count 4.9 10^3/uL (3.8-11.8)
[2023-10-13 13:36] LABS: ALT 44 U/L (7-52); AST 23 U/L (13-39); Albumin 4.1 g/dL (3.2-5.2); Alcohol, S < 13 mg/dL (<13); Alkaline Phosphatase 98 U/L (35-149); Anion Gap 9 mmol/L (2-16); Blood Urea Nitrogen 8 mg/dL (6-24); CO2 Carbon Dioxide 29 mmol/L (22-32); Calcium 9.2 mg/dL (8.6-10.3); Chloride 108 mmol/L (101-111); Creatinine, Serum 0.77 mg/dL (0.51-0.95); Globulin 2.1 g/dL (2-4); Glucose 116 mg/dL (70-100); Magnesium 1.9 mg/dL (1.9-2.7); Potassium 3.9 mmol/L (3.5-5.0); Sodium 146 mmol/L (135-145); Total Bilirubin 0.6 mg/dL (0.2-1.0); Total Protein 6.2 g/dL (6.4-8.9); eGFR CKD-EPI 81.9 (>60)
[2023-10-13 13:42] LABS: High Sens Troponin Baseline 47 pg/mL (<15)
[2023-10-13 13:51] LABS: TSH Ultra Thyroid Stim Horm 1.07 mcIU/mL (0.34-5.60)
[2023-10-13 14:35] LABS: High Sensitivity Troponin 1 Hr 43 pg/mL (<15)
[2023-10-13] MEDS: Furosemide 40 mg/4 ml IV VIAL IV SLOW PU ONE (14:40)
[2023-10-13] MEDS: Nitro 2% OINT (Nitroglycerin) 1 INCH/PAK TOPICAL ONE (16:07)
[2023-10-13 16:26] LABS: Urine Appearance Clear; Urine Bilirubin Negative (Negative); Urine Blood Negative (Negative); Urine Color Colorless; Urine Glucose Negative (Negative); Urine Ketones Negative (Negative); Urine Nitrite Negative (Negative); Urine Protein Negative (Negative); Urine Specific Gravity 1.006 (1.002-1.030); Urine Urobilinogen Negative (Negative)
[2023-10-13 18:15] LABS: Urine Benzodiazepine Screen None Detected (None Detect); Urine Cannabinoids Screen None Detected (None Detect); Urine Opiates Screen None Detected (None Detect)
[2023-10-13] MEDS: niCARdipine 0.1MG/ML IVPREMIX 20 MG/200 ML BAG IV SCH (19:03)
[2023-10-13] MEDS: Enoxaparin 40 MG/0.4 ML SYR SUBCUT SCH (19:04)
[2023-10-13] MEDS ORDERED: Nicotine GUM 4MG FRUIT FLAVOR PO PRN (19:16)
[2023-10-13 20:38] LABS: % Iron Saturation 18 % (15-55); .Transferrin 303 mg/dL (203-362); Iron 77 ug/dL (50-212); Total Iron Binding Capacity 424 mcg/dL (250-450); Unsaturated Iron Binding 347 ug/dL
[2023-10-13 20:42] LABS: Ferritin 23.2 ng/mL (11-307)
[2023-10-13 20:46] LABS: Folate 8.21 ng/mL (5.90-24.80); Vitamin B12 322 pg/mL (180-914)
[2023-10-13] MEDS: Nicotine PATCH 14 MG/24 HR PATCH TRANSDERM SCH (20:56)
[2023-10-14 04:40] LABS: ABS Basophils 0.1 10^3/uL (0.0-0.1); ABS Eosinophils 0.2 10^3/uL (0.0-0.5); ABS Lymphocytes 1.1 10^3/uL (1.0-4.8); ABS Monocytes 0.5 10^3/uL (0.0-0.9); ABS Nucleated RBC 0.01 10^3/ul; Eosinophil % 4.7 %; Hematocrit 33.7 % (35-45); Hemoglobin 11.2 g/dL (11.5-14.3); Lymphocyte % 22.4 %; Mean Corpuscular Hemoglobin 30.2 pg (27-33); Mean Corpuscular Hgb Conc 33.3 g/dL (31-36); Mean Corpuscular Volume 90.6 fL (80-97); Mean Platelet Volume 7.1 fL (7.5-11.2); Nucleated Red Blood Cells % 0.3 %/100WBC (0.0-0.8); Platelet Count 255 10^3/uL (150-450); Red Blood Count 3.72 10^6/uL (3.63-4.92); Red Cell Distribution Width 18.1 % (12-17); White Blood Count 4.8 10^3/uL (3.8-11.8)
[2023-10-14 05:41] LABS: C Reactive Protein 17.54 mg/L (<8.01); Magnesium 1.6 mg/dL (1.9-2.7)
[2023-10-14] MEDS: Magnesium Sulfate 2 gm BAG 2 GM/50 ML BAG IVPB ONE (07:52)
[2023-10-14] MEDS: Magnesium Sulfate IV 1GM/100ML 1 GM/100 ML BAG IV ONE (08:52)
[2023-10-14 10:05] LABS: Calcium 8.4 mg/dL (8.6-10.3); Creatinine, Serum 0.61 mg/dL (0.51-0.95); eGFR CKD-EPI 94.9 (>60)
[2023-10-14] MEDS: Potassium EFFERVES 25 meq TAB PO ONE (11:21)
[2023-10-15 05:44] VITALS: BP 146/92
[2023-10-15 07:13] LABS: ABS Eosinophils 0.1 10^3/uL (0.0-0.5); ABS Lymphocytes 1.1 10^3/uL (1.0-4.8); ABS Monocytes 0.6 10^3/uL (0.0-0.9); ABS Neutrophils 3.2 10^3/uL (1.5-7.6); ABS Nucleated RBC 0.01 10^3/ul; Eosinophil % 2.2 %; Hematocrit 32.2 % (35-45); Hemoglobin 10.8 g/dL (11.5-14.3); Lymphocyte % 22.3 %; Mean Corpuscular Hemoglobin 30.3 pg (27-33); Mean Corpuscular Hgb Conc 33.6 g/dL (31-36); Mean Corpuscular Volume 90.4 fL (80-97); Mean Platelet Volume 7.6 fL (7.5-11.2); Nucleated Red Blood Cells % 0.2 %/100WBC (0.0-0.8); Platelet Count 269 10^3/uL (150-450); Red Blood Count 3.57 10^6/uL (3.63-4.92); Red Cell Distribution Width 17.8 % (12-17); White Blood Count 5.1 10^3/uL (3.8-11.8)
[2023-10-15 07:38] LABS: Creatinine, Serum 0.7 mg/dL (0.51-0.95); Magnesium 2.2 mg/dL (1.9-2.7); Potassium 3.6 mmol/L (3.5-5.0); eGFR CKD-EPI 91.8 (>60)
[2023-10-15] MEDS ORDERED: Potassium Chlor 20 meq TAB.ER PO SCH (09:00)
== END 2023-10-15 09:40 | disposition home or self-care (01) | DRG 305 ==
LOC: ED 11:02 → SUATTDRO 17:56 → EDHOLD 17:56 → ICU 19:04 → MEDTELE 10-14 12:52
PROVIDERS: ADMIT Student in an Organized Health Care Education/Training Program; ATTEND Hospitalist

== ENCOUNTER 2023-12-04 13:23 | Inpatient (IN) ==
[2023-12-04] MEDS: Labetalol IV 5 MG/ML 20 ml VIAL IV PUSH ONE (14:25)
[2023-12-04 14:39] LABS: ABS Lymphocytes 0.5 10^3/uL (1.0-4.8); ABS Monocytes 0.4 10^3/uL (0.0-0.9); ABS Neutrophils 4.2 10^3/uL (1.5-7.6); Eosinophil % 0.5 %; Hematocrit 39.1 % (35-45); Lymphocyte % 9.7 %; Mean Corpuscular Hemoglobin 29.6 pg (27-33); Mean Corpuscular Hgb Conc 33.4 g/dL (31-36); Mean Corpuscular Volume 88.8 fL (80-97); Mean Platelet Volume 7.9 fL (7.5-11.2); Platelet Count 378 10^3/uL (150-450); Red Cell Distribution Width 17.6 % (12-17); White Blood Count 5.1 10^3/uL (3.8-11.8)
[2023-12-04 15:06] LABS: Albumin 3.4 g/dL (3.2-5.2); Albumin/Globulin Ratio 1.8 (1-3); Calcium 8.6 mg/dL (8.6-10.3); Creatinine, Serum 0.62 mg/dL (0.51-0.95); Globulin 1.9 g/dL (2-4); Magnesium 1.5 mg/dL (1.9-2.7); Phosphorus 3.3 mg/dL (2.5-5.0); Potassium 2.8 mmol/L (3.5-5.0); Total Bilirubin 0.7 mg/dL (0.2-1.0); Total Protein 5.3 g/dL (6.4-8.9)
[2023-12-04] MEDS: Furosemide 40 mg/4 ml IV VIAL IV SLOW PU ONE (16:01)
[2023-12-04 16:03] LABS: High Sensitivity Troponin 1 Hr 52 pg/mL (<15)
[2023-12-04] MEDS: KCL 20 MEQ/100 ML IVPREMIX 20 MEQ/100 ML BAG IV SCH (16:05)
[2023-12-04] MEDS: Nitro 2% OINT (Nitroglycerin) 1 INCH/PAK TOPICAL ONE (16:09)
[2023-12-04] MEDS: Potassium Chlor 20 meq TAB.ER PO ONE (17:51)
[2023-12-04] MEDS: Magnesium Sulfate 2 gm BAG 2 GM/50 ML BAG IVPB ONE ×2 (18:00→20:40)
[2023-12-04] MEDS: hydrALAZINE 20 mg/ml 1 ML Vial IV IV SLOW PU ONE (18:14)
[2023-12-04 18:15] LABS: Urine Appearance Clear; Urine Bilirubin Negative (Negative); Urine Blood Negative (Negative); Urine Color Colorless; Urine Glucose Negative (Negative); Urine Ketones Negative (Negative); Urine Nitrite Negative (Negative); Urine Protein Negative (Negative); Urine Specific Gravity 1.007 (1.002-1.030); Urine Urobilinogen Negative (Negative)
[2023-12-04 18:23] LABS: High Sensitivity Troponin 3 Hr 51 pg/mL (<15)
[2023-12-04] MEDS: Potassium Chloride LIQUID 20 MEQ/15 ML LIQUID PO ONE ×2 (19:59→20:41)
[2023-12-04 20:21] LABS: C Reactive Protein 40.97 mg/L (<8.01)
[2023-12-04] MEDS: Enoxaparin 40 MG/0.4 ML SYR SUBCUT SCH (21:23)
[2023-12-04 23:42] LABS: Calcium 8.3 mg/dL (8.6-10.3); Creatinine, Serum 0.74 mg/dL (0.51-0.95); Potassium 3.2 mmol/L (3.5-5.0); eGFR CKD-EPI 85.4 (>60)
[2023-12-05] MEDS: KCL 20 MEQ/100 ML IVPREMIX 20 MEQ/100 ML BAG IV SCH ×2 (00:11→00:23)
[2023-12-05] MEDS: Sulfur Hexaflouride MICROSPHR 25 MG VIAL IV ONE ×2 (00:11→11:35)
[2023-12-05 08:50] LABS: Calcium 8.1 mg/dL (8.6-10.3); Creatinine, Serum 0.65 mg/dL (0.51-0.95); Magnesium 1.9 mg/dL (1.9-2.7); eGFR CKD-EPI 92.9 (>60)
[2023-12-05] MEDS: Nicotine PATCH 21 MG/24 HR PATCH TRANSDERM SCH (09:42)
[2023-12-05] MEDS: Furosemide 40 mg/4 ml IV VIAL IV SLOW PU ONE (10:39)
[2023-12-05] MEDS: Epleronone 25 mg TAB (NF) PO SCH (14:23)
[2023-12-06] MEDS: Magnesium Sulfate IV 1GM/100ML 1 GM/100 ML BAG IV ONE (08:57)
[2023-12-06 09:01] LABS: Hematocrit 36.7 % (35-45); Hemoglobin 12.3 g/dL (11.5-14.3); Mean Corpuscular Hemoglobin 30.1 pg (27-33); Mean Corpuscular Hgb Conc 33.5 g/dL (31-36); Mean Corpuscular Volume 89.7 fL (80-97); Mean Platelet Volume 7.7 fL (7.5-11.2); Platelet Count 293 10^3/uL (150-450); Red Blood Count 4.09 10^6/uL (3.63-4.92); White Blood Count 5.5 10^3/uL (3.8-11.8)
[2023-12-06 11:27] LABS: Anion Gap 18 mmol/L (2-16); Blood Urea Nitrogen 10 mg/dL (6-24); CO2 Carbon Dioxide 26 mmol/L (22-32); Calcium 8.3 mg/dL (8.6-10.3); Chloride 98 mmol/L (101-111); Creatinine, Serum 0.69 mg/dL (0.51-0.95); Glucose 118 mg/dL (70-100); Magnesium 1.7 mg/dL (1.9-2.7); Sodium 142 mmol/L (135-145); eGFR CKD-EPI 91.6 (>60)
[2023-12-06 13:30] LABS: PCO2 Arterial 43 mmHg (35-45)
[2023-12-06 13:35] LABS: PO2 Arterial 54 mmHg (80-100)
[2023-12-06 14:45] LABS: Potassium, Whole Blood 3.1 mmol/L (3.4-4.5)
[2023-12-07] MEDS: hydrALAZINE 20 mg/ml 1 ML Vial IV IV SLOW PU ONE (02:39)
[2023-12-07] MEDS: Labetalol IV 5 MG/ML 20 ml VIAL IV PUSH ONE (05:29)
[2023-12-07 08:45] LABS: Calcium 8.3 mg/dL (8.6-10.3); Creatinine, Serum 0.72 mg/dL (0.51-0.95); Potassium 3.6 mmol/L (3.5-5.0); eGFR CKD-EPI 88.2 (>60)
[2023-12-07 10:02] LABS: Magnesium 1.9 mg/dL (1.9-2.7)
[2023-12-08 09:47] LABS: Calcium 7.8 mg/dL (8.6-10.3); Creatinine, Serum 0.58 mg/dL (0.51-0.95); Potassium 3.2 mmol/L (3.5-5.0); eGFR CKD-EPI 95.5 (>60)
[2023-12-08] MEDS: Furosemide 40 mg/4 ml IV VIAL IV SLOW PU ONE (10:18)
[2023-12-08] MEDS: Potassium Chlor 20 meq TAB.ER PO ONE (10:18)
[2023-12-09 08:19] LABS: Calcium 7.9 mg/dL (8.6-10.3); Creatinine, Serum 0.67 mg/dL (0.51-0.95); Magnesium 1.8 mg/dL (1.9-2.7); Potassium 3.8 mmol/L (3.5-5.0); eGFR CKD-EPI 92.2 (>60)
[2023-12-09 11:01] VITALS: BP 151/75
[2023-12-09] MEDS: Magnesium Sulfate 2 gm BAG 2 GM/50 ML BAG IVPB ONE (11:53)
[2023-12-11 10:41] LABS: Renin 1.3 ng/mL/h
== END 2023-12-09 12:30 | disposition home or self-care (01) | DRG 304 ==
LOC: EDHOLD 13:23 → ED 13:23 → SUATTDRO 16:27 → MEDTELE 21:57 → SUATTDRO 12-06 17:04 → MEDTELE 12-07 16:48
PROVIDERS: ADMIT Hospitalist; ATTEND Internal Medicine

== ENCOUNTER 2023-12-22 09:29 | Observation (INO) ==
[2023-12-22 10:47] LABS: ABS Lymphocytes 0.7 10^3/uL (1.0-4.8); ABS Monocytes 0.3 10^3/uL (0.0-0.9); ABS Neutrophils 4.1 10^3/uL (1.5-7.6); ABS Nucleated RBC 0.01 10^3/ul; Eosinophil % 0.3 %; Hematocrit 36.4 % (35-45); Hemoglobin 11.9 g/dL (11.5-14.3); Lymphocyte % 13.2 %; Mean Corpuscular Hemoglobin 29.2 pg (27-33); Mean Corpuscular Hgb Conc 32.6 g/dL (31-36); Mean Corpuscular Volume 89.6 fL (80-97); Mean Platelet Volume 7.3 fL (7.5-11.2); Nucleated Red Blood Cells % 0.2 %/100WBC (0.0-0.8); Platelet Count 464 10^3/uL (150-450); Red Blood Count 4.07 10^6/uL (3.63-4.92); Red Cell Distribution Width 18.7 % (12-17); White Blood Count 5.1 10^3/uL (3.8-11.8)
[2023-12-22] MEDS: Labetalol IV 5 MG/ML 20 ml VIAL IV PUSH ONE (10:48)
[2023-12-22 10:56] LABS: Activated Partial Thrombo Time 27.6 seconds (26.0-38.0); INR 1.01 (0.83-1.13)
[2023-12-22] MEDS: Furosemide 40 mg/4 ml IV VIAL IV ONE (11:31)
[2023-12-22 11:47] LABS: C Reactive Protein 30.66 mg/L (<8.01)
[2023-12-22 11:48] LABS: Albumin 3.8 g/dL (3.2-5.2); Albumin/Globulin Ratio 1.7 (1-3); Calcium 8.8 mg/dL (8.6-10.3); Creatinine, Serum 0.87 mg/dL (0.51-0.95); Globulin 2.3 g/dL (2-4); Potassium 3.5 mmol/L (3.5-5.0); Total Bilirubin 0.6 mg/dL (0.2-1.0); Total Protein 6.1 g/dL (6.4-8.9); eGFR CKD-EPI 70.3 (>60)
[2023-12-22 11:52] LABS: PCO2 Arterial 47 mmHg (35-45); PO2 Arterial 78 mmHg (80-100)
[2023-12-22 12:21] LABS: High Sensitivity Troponin 1 Hr 716 pg/mL (<15)
[2023-12-22] MEDS: Albuterol HFA INHALER 8 gm MDI INH ONE (12:28)
[2023-12-22 13:06] LABS: Urine Appearance Turbid; Urine Bilirubin Negative (Negative); Urine Blood 3+ (Negative); Urine Color Light-Yellow; Urine Glucose Negative (Negative); Urine Ketones Negative (Negative); Urine Nitrite Negative (Negative); Urine Protein Trace (Negative); Urine Specific Gravity 1.012 (1.002-1.030); Urine Urobilinogen Negative (Negative); Urine pH 5.5 (5.0-8.0)
[2023-12-22 13:26] LABS: Urine Bacteria 1+ /HPF (Absent); Urine Red Blood Cell 3+(>10/hpf) /HPF (0-Trace); Urine Squamous Epithelial Cell Present /HPF (Absent); Urine White Blood Cell 3+(>20/hpf) /HPF (0-Trace)
[2023-12-22] MEDS: Heparin DRIP 25,000 UNITS BAG 25,000 UNITS/250 ML BAG IV SCH (13:31)
[2023-12-22] MEDS: Heparin 5000 UNITS/ML 1 mL VIAL IV PRN (13:32)
[2023-12-22] MEDS: Albuterol/Ipratropium NEB.SOL (2.5/0.5 MG) 3 ML NEB.SOLN INH SCH (13:45)
[2023-12-22] MEDS ORDERED: Labetalol IV 5 MG/ML 20 ml VIAL IV PUSH PRN (16:03)
[2023-12-22] MEDS: cefTRIAXone 1 gm/50 mL D5W 1 GM/50 ML BAG IV SCH (17:11)
[2023-12-22] MEDS: Potassium Chlor 20 meq TAB.ER PO ONE (18:44)
[2023-12-22 18:58] LABS: High Sensitivity Troponin 3 Hr 1632 pg/mL (<15)
[2023-12-22 19:41] LABS: HDL Cholesterol 72.3 mg/dL
[2023-12-22] MEDS: Calcium/Vitamin D TAB 250/125 TAB PO SCH (21:44)
[2023-12-22] MEDS: Enoxaparin 40 MG/0.4 ML SYR SUBCUT SCH (21:44)
[2023-12-23 06:51] LABS: Anion Gap 11 mmol/L (2-16); Blood Urea Nitrogen 19 mg/dL (6-24); CO2 Carbon Dioxide 23 mmol/L (22-32); Calcium 8.2 mg/dL (8.6-10.3); Chloride 108 mmol/L (101-111); Creatinine, Serum 0.82 mg/dL (0.51-0.95); Glucose 94 mg/dL (70-100); Magnesium 1.7 mg/dL (1.9-2.7); Sodium 142 mmol/L (135-145); eGFR CKD-EPI 75.5 (>60)
[2023-12-23] MEDS: Magnesium Sulfate 2 gm BAG 2 GM/50 ML BAG IVPB ONE (07:34)
[2023-12-23] MEDS ORDERED: Metoprolol Tartrate 5 mg VIAL 5 ml VIAL (1 mg/ml) ONE (08:13)
[2023-12-23] MEDS ORDERED: Aminophylline 25 MG/ML VIAL ONE (08:13)
[2023-12-23] MEDS ORDERED: Regadenoson 0.4 MG/5 ML SYRINGE ONE (08:14)
[2023-12-23] MEDS: Nicotine PATCH 7 MG/24 HR PATCH TRANSDERM SCH (14:56)
[2023-12-23] MEDS: Furosemide 40 mg/4 ml IV VIAL IV ONE (14:56)
[2023-12-23] MEDS: CMCS: Epleronone 25 mg TAB (NF) PO SCH (21:20)
[2023-12-24 05:22] LABS: ABS Eosinophils 0.1 10^3/uL (0.0-0.5); ABS Lymphocytes 0.8 10^3/uL (1.0-4.8); ABS Monocytes 0.4 10^3/uL (0.0-0.9); ABS Neutrophils 2.3 10^3/uL (1.5-7.6); ABS Nucleated RBC 0.01 10^3/ul; Eosinophil % 3.8 %; Hematocrit 32.5 % (35-45); Hemoglobin 10.8 g/dL (11.5-14.3); Lymphocyte % 21.1 %; Mean Corpuscular Hgb Conc 33.3 g/dL (31-36); Mean Corpuscular Volume 90.1 fL (80-97); Mean Platelet Volume 6.9 fL (7.5-11.2); Nucleated Red Blood Cells % 0.2 %/100WBC (0.0-0.8); Platelet Count 352 10^3/uL (150-450); Red Blood Count 3.61 10^6/uL (3.63-4.92); Red Cell Distribution Width 18.2 % (12-17); White Blood Count 3.6 10^3/uL (3.8-11.8)
[2023-12-24 05:45] LABS: Calcium 8.1 mg/dL (8.6-10.3); Creatinine, Serum 0.74 mg/dL (0.51-0.95); Magnesium 1.8 mg/dL (1.9-2.7); Potassium 3.4 mmol/L (3.5-5.0); eGFR CKD-EPI 85.4 (>60)
[2023-12-24] MEDS: Potassium Chlor 20 meq TAB.ER PO SCH (08:50)
[2023-12-24] MEDS: Magnesium Sulfate 2 gm BAG 2 GM/50 ML BAG IVPB ONE (09:00)
[2023-12-25 05:02] LABS: ABS Basophils 0.1 10^3/uL (0.0-0.1); ABS Eosinophils 0.1 10^3/uL (0.0-0.5); ABS Lymphocytes 0.6 10^3/uL (1.0-4.8); ABS Monocytes 0.4 10^3/uL (0.0-0.9); ABS Neutrophils 3.5 10^3/uL (1.5-7.6); ABS Nucleated RBC 0.01 10^3/ul; Hematocrit 35.5 % (35-45); Hemoglobin 11.4 g/dL (11.5-14.3); Mean Corpuscular Hgb Conc 32.1 g/dL (31-36); Mean Corpuscular Volume 90.5 fL (80-97); Mean Platelet Volume 7.3 fL (7.5-11.2); Nucleated Red Blood Cells % 0.2 %/100WBC (0.0-0.8); Platelet Count 400 10^3/uL (150-450); Red Blood Count 3.92 10^6/uL (3.63-4.92); Red Cell Distribution Width 18.6 % (12-17); White Blood Count 4.6 10^3/uL (3.8-11.8)
[2023-12-25 05:39] LABS: Calcium 8.5 mg/dL (8.6-10.3); Creatinine, Serum 0.72 mg/dL (0.51-0.95); Potassium 4.2 mmol/L (3.5-5.0); eGFR CKD-EPI 88.2 (>60)
[2023-12-25] MEDS ORDERED: Nicotine GUM 2MG FRUIT FLAVOR PO PRN (11:00)
[2023-12-25] MEDS: Furosemide 40 mg/4 ml IV VIAL IV ONE (11:02)
[2023-12-25] MEDS: Nicotine PATCH 14 MG/24 HR PATCH TRANSDERM SCH (11:02)
[2023-12-25] MEDS: Ondansetron 4 mg VIAL 2 MG/ML 2 ml VIAL IV PRN (12:35)
[2023-12-25] MEDS: Albuterol/Ipratropium NEB.SOL (2.5/0.5 MG) 3 ML NEB.SOLN INH PRN (23:16)
[2023-12-26] MEDS: Bumetanide IV 0.25 MG/ML 4 ml VIAL (1 mg) IV SLOW PU ONE (01:59)
[2023-12-26 06:39] LABS: ABS Eosinophils 0.1 10^3/uL (0.0-0.5); ABS Lymphocytes 0.8 10^3/uL (1.0-4.8); ABS Monocytes 0.6 10^3/uL (0.0-0.9); ABS Neutrophils 2.8 10^3/uL (1.5-7.6); ABS Nucleated RBC 0.01 10^3/ul; Hematocrit 30.2 % (35-45); Hemoglobin 10.1 g/dL (11.5-14.3); Lymphocyte % 18.3 %; Mean Corpuscular Hgb Conc 33.4 g/dL (31-36); Mean Corpuscular Volume 89.9 fL (80-97); Mean Platelet Volume 7.5 fL (7.5-11.2); Nucleated Red Blood Cells % 0.2 %/100WBC (0.0-0.8); Platelet Count 367 10^3/uL (150-450); Red Blood Count 3.36 10^6/uL (3.63-4.92); Red Cell Distribution Width 18.7 % (12-17); White Blood Count 4.4 10^3/uL (3.8-11.8)
[2023-12-26 06:41] LABS: Creatinine, Serum 0.68 mg/dL (0.51-0.95); Magnesium 1.9 mg/dL (1.9-2.7); Potassium 4.2 mmol/L (3.5-5.0); eGFR CKD-EPI 91.9 (>60)
[2023-12-26] MEDS: Magnesium Sulfate IV 1GM/100ML 1 GM/100 ML BAG IV ONE (09:48)
[2023-12-26] MEDS: Furosemide 40 mg/4 ml IV VIAL IV ONE (13:04)
[2023-12-26 13:37] VITALS: BP 156/87
[2023-12-26] MEDS ORDERED: Mometasone/Formoter 100/5 MDI INH SCH (19:00)
== END 2023-12-26 13:40 | disposition swing bed (61) ==
LOC: ED 09:29 → EDHOLD 09:29 → SUATTDRO 13:43 → MEDTELE 14:32
PROVIDERS: ADMIT Family Medicine; ATTEND Internal Medicine

== ENCOUNTER 2023-12-26 13:47 | Inpatient (IN) ==
[2023-12-26] MEDS ORDERED: Albuterol/Ipratropium NEB.SOL (2.5/0.5 MG) 3 ML NEB.SOLN INH PRN (14:09)
[2023-12-26] MEDS ORDERED: Nicotine GUM 2MG FRUIT FLAVOR PO PRN (14:09)
[2023-12-26] MEDS: Mometasone/Formoter 100/5 MDI INH SCH (20:02)
[2023-12-26] MEDS: Calcium/Vitamin D TAB 250/125 TAB PO SCH (22:44)
[2023-12-26] MEDS: Potassium Chloride LIQUID 20 MEQ/15 ML LIQUID PO SCH (22:46)
[2023-12-26] MEDS: Enoxaparin 40 MG/0.4 ML SYR SUBCUT SCH (22:52)
[2023-12-27] MEDS: CMC:Epleronone 25 mg TAB (NF) PO SCH (09:36)
[2023-12-27] MEDS: Nicotine PATCH 14 MG/24 HR PATCH TRANSDERM SCH (09:47)
[2023-12-28 23:03] LABS: ABS Basophils 0.1 10^3/uL (0.0-0.1); ABS Lymphocytes 0.6 10^3/uL (1.0-4.8); ABS Monocytes 0.4 10^3/uL (0.0-0.9); ABS Neutrophils 4.9 10^3/uL (1.5-7.6); Eosinophil % 0.6 %; Hematocrit 33.5 % (35-45); Hemoglobin 11.1 g/dL (11.5-14.3); Lymphocyte % 10.4 %; Mean Corpuscular Hemoglobin 29.6 pg (27-33); Mean Corpuscular Hgb Conc 33.2 g/dL (31-36); Mean Platelet Volume 7.4 fL (7.5-11.2); Nucleated Red Blood Cells % 0.1 %/100WBC (0.0-0.8); Platelet Count 408 10^3/uL (150-450); Red Blood Count 3.77 10^6/uL (3.63-4.92); Red Cell Distribution Width 18.9 % (12-17); White Blood Count 6.1 10^3/uL (3.8-11.8)
[2023-12-29 00:15] LABS: Calcium 8.9 mg/dL (8.6-10.3); Creatinine, Serum 0.99 mg/dL (0.51-0.95); Magnesium 1.9 mg/dL (1.9-2.7); Potassium 4.6 mmol/L (3.5-5.0); eGFR CKD-EPI 60.2 (>60)
[2023-12-29 00:35] LABS: Prolactin 11.5 ng/mL (1.0-25.0)
[2023-12-29 06:04] VITALS: BP 181/98
[2023-12-29 12:06] LABS: Rapid COVID-19 Molecular Undetected (Undetected)
== END 2023-12-29 13:30 | disposition swing bed (61) | DRG 280 ==
LOC: MEDTELE 13:47 → SUATTDRO 13:47
PROVIDERS: ADMIT Internal Medicine; ATTEND Hospitalist

== ENCOUNTER 2024-01-30 12:51 | Observation (INO) ==
[2024-01-30 13:46] LABS: PCO2 Arterial 41 mmHg (35-45); PO2 Arterial 96 mmHg (80-100)
[2024-01-30 14:02] LABS: ABS Basophils 0.1 10^3/uL (0.0-0.1); ABS Monocytes 0.7 10^3/uL (0.0-0.9); ABS Neutrophils 3.2 10^3/uL (1.5-7.6); Eosinophil % 0.6 %; Hematocrit 35.7 % (35-45); Hemoglobin 11.5 g/dL (11.5-14.3); Lymphocyte % 20.5 %; Mean Corpuscular Hemoglobin 28.8 pg (27-33); Mean Corpuscular Hgb Conc 32.2 g/dL (31-36); Mean Corpuscular Volume 89.5 fL (80-97); Mean Platelet Volume 6.5 fL (7.5-11.2); Nucleated Red Blood Cells % 0.1 %/100WBC (0.0-0.8); Platelet Count 441 10^3/uL (150-450); Red Blood Count 3.99 10^6/uL (3.63-4.92); Red Cell Distribution Width 18.3 % (12-17); White Blood Count 5.1 10^3/uL (3.8-11.8)
[2024-01-30 14:15] LABS: Activated Partial Thrombo Time 30.9 seconds (26.0-38.0); INR 1.16 (0.83-1.13)
[2024-01-30 14:58] LABS: Albumin 4.1 g/dL (3.2-5.2); Albumin/Globulin Ratio 1.9 (1-3); C Reactive Protein 59.27 mg/L (<8.01); Calcium 9.3 mg/dL (8.6-10.3); Creatinine, Serum 0.88 mg/dL (0.51-0.95); Globulin 2.2 g/dL (2-4); Potassium 3.6 mmol/L (3.5-5.0); Total Bilirubin 0.7 mg/dL (0.2-1.0); Total Protein 6.3 g/dL (6.4-8.9); eGFR CKD-EPI 69.3 (>60)
[2024-01-30] MEDS: Albuterol/Ipratropium NEB.SOL (2.5/0.5 MG) 3 ML NEB.SOLN INH ONE (15:03)
[2024-01-30 15:32] LABS: High Sensitivity Troponin 1 Hr 39 pg/mL (<15)
[2024-01-30] MEDS: Furosemide 40 mg/4 ml IV VIAL IV SLOW PU ONE (16:12)
[2024-01-30] MEDS: niCARdipine 0.1MG/ML IVPREMIX 20 MG/200 ML BAG IV SCH (18:26)
[2024-01-30 18:46] LABS: Urine Appearance Clear; Urine Bilirubin Negative (Negative); Urine Blood Negative (Negative); Urine Color Colorless; Urine Glucose Negative (Negative); Urine Ketones Negative (Negative); Urine Nitrite Negative (Negative); Urine Protein Negative (Negative); Urine Specific Gravity 1.005 (1.002-1.030); Urine Urobilinogen Negative (Negative); Urine pH 6.5 (5.0-8.0)
[2024-01-31] MEDS: Enoxaparin 40 MG/0.4 ML SYR SUBCUT SCH (00:55)
[2024-01-31] MEDS: Albuterol/Ipratropium NEB.SOL (2.5/0.5 MG) 3 ML NEB.SOLN INH SCH (01:00)
[2024-01-31] MEDS ORDERED: hydrALAZINE 20 mg/ml 1 ML Vial IV IV SLOW PU PRN (01:54)
[2024-01-31] MEDS ORDERED: Sulfur Hexaflouride MICROSPHR 25 MG VIAL IV ONE (07:41)
[2024-01-31] MEDS: Nicotine PATCH 21 MG/24 HR PATCH TRANSDERM SCH (08:23)
[2024-01-31 08:39] LABS: AST 19 U/L (13-39); Potassium 4.2 mmol/L (3.5-5.0)
[2024-01-31 08:40] LABS: ALT 27 U/L (7-52); Albumin 3.6 g/dL (3.2-5.2); Albumin/Globulin Ratio 1.6 (1-3); Alkaline Phosphatase 142 U/L (35-149); Anion Gap 10 mmol/L (2-16); Blood Urea Nitrogen 20 mg/dL (6-24); CO2 Carbon Dioxide 30 mmol/L (22-32); Calcium 8.5 mg/dL (8.6-10.3); Chloride 103 mmol/L (101-111); Creatinine, Serum 0.79 mg/dL (0.51-0.95); GGTP 473 U/L (9-64.0); Globulin 2.2 g/dL (2-4); Glucose 91 mg/dL (70-100); Sodium 143 mmol/L (135-145); Total Bilirubin 0.5 mg/dL (0.2-1.0); Total Protein 5.8 g/dL (6.4-8.9); eGFR CKD-EPI 78.9 (>60)
[2024-01-31 12:13] LABS: Alcohol, S < 13 mg/dL (<13); TSH Ultra Thyroid Stim Horm 1.04 mcIU/mL (0.34-5.60)
[2024-01-31] MEDS: Furosemide 40 mg/4 ml IV VIAL IV SLOW PU ONE (12:17)
[2024-01-31 12:27] LABS: Folate 8.86 ng/mL (5.90-24.80); Vitamin B12 387 pg/mL (180-914)
[2024-01-31 12:55] LABS: ABS Eosinophils 0.1 10^3/uL (0.0-0.5); ABS Lymphocytes 0.9 10^3/uL (1.0-4.8); ABS Monocytes 0.5 10^3/uL (0.0-0.9); ABS Neutrophils 4.5 10^3/uL (1.5-7.6); Eosinophil % 1.3 %; Hematocrit 26.9 % (35-45); Hemoglobin 8.9 g/dL (11.5-14.3); Lymphocyte % 14.8 %; Mean Corpuscular Hemoglobin 29.6 pg (27-33); Mean Corpuscular Volume 89.9 fL (80-97); Nucleated Red Blood Cells % 0.1 %/100WBC (0.0-0.8); Platelet Count 336 10^3/uL (150-450); Red Cell Distribution Width 18.8 % (12-17); White Blood Count 5.9 10^3/uL (3.8-11.8)
[2024-01-31 13:08] LABS: Urine Benzodiazepine Screen None Detected (None Detect); Urine Cannabinoids Screen None Detected (None Detect); Urine Opiates Screen None Detected (None Detect)
[2024-01-31 13:40] LABS: Potassium, Whole Blood 2.8 mmol/L (3.4-4.5)
[2024-01-31 14:42] LABS: Magnesium 1.8 mg/dL (1.9-2.7)
[2024-01-31 16:58] LABS: ABS Eosinophils 0.1 10^3/uL (0.0-0.5); ABS Lymphocytes 0.6 10^3/uL (1.0-4.8); ABS Monocytes 0.5 10^3/uL (0.0-0.9); ABS Neutrophils 5.3 10^3/uL (1.5-7.6); Eosinophil % 1.1 %; Hematocrit 33.1 % (35-45); Hemoglobin 10.8 g/dL (11.5-14.3); Lymphocyte % 9.4 %; Mean Corpuscular Hemoglobin 29.2 pg (27-33); Mean Corpuscular Hgb Conc 32.5 g/dL (31-36); Mean Corpuscular Volume 89.9 fL (80-97); Mean Platelet Volume 6.7 fL (7.5-11.2); Nucleated Red Blood Cells % 0.1 %/100WBC (0.0-0.8); Platelet Count 407 10^3/uL (150-450); Red Blood Count 3.68 10^6/uL (3.63-4.92); Red Cell Distribution Width 18.6 % (12-17); White Blood Count 6.5 10^3/uL (3.8-11.8)
[2024-01-31 17:14] LABS: Calcium 8.5 mg/dL (8.6-10.3); Creatinine, Serum 1.04 mg/dL (0.51-0.95); Magnesium 1.7 mg/dL (1.9-2.7); Potassium 3.4 mmol/L (3.5-5.0); eGFR CKD-EPI 56.8 (>60)
[2024-02-01 06:31] LABS: ABS Basophils 0.1 10^3/uL (0.0-0.1); ABS Eosinophils 0.1 10^3/uL (0.0-0.5); ABS Lymphocytes 0.6 10^3/uL (1.0-4.8); ABS Monocytes 0.4 10^3/uL (0.0-0.9); ABS Neutrophils 2.9 10^3/uL (1.5-7.6); Eosinophil % 2.9 %; Hematocrit 30.7 % (35-45); Hemoglobin 10.4 g/dL (11.5-14.3); Lymphocyte % 15.5 %; Mean Corpuscular Hemoglobin 30.3 pg (27-33); Mean Corpuscular Hgb Conc 33.8 g/dL (31-36); Mean Corpuscular Volume 89.8 fL (80-97); Mean Platelet Volume 6.7 fL (7.5-11.2); Nucleated Red Blood Cells % 0.1 %/100WBC (0.0-0.8); Platelet Count 329 10^3/uL (150-450); Red Blood Count 3.42 10^6/uL (3.63-4.92); Red Cell Distribution Width 17.7 % (12-17); White Blood Count 4.2 10^3/uL (3.8-11.8)
[2024-02-01 06:58] LABS: Albumin 2.9 g/dL (3.2-5.2); Albumin/Globulin Ratio 1.7 (1-3); Calcium 7.7 mg/dL (8.6-10.3); Creatinine, Serum 0.68 mg/dL (0.51-0.95); Globulin 1.7 g/dL (2-4); Magnesium 1.5 mg/dL (1.9-2.7); Potassium 3.2 mmol/L (3.5-5.0); Total Bilirubin 0.5 mg/dL (0.2-1.0); Total Protein 4.6 g/dL (6.4-8.9); eGFR CKD-EPI 91.9 (>60)
[2024-02-01] MEDS: Magnesium Sulfate 2 gm BAG 2 GM/50 ML BAG IVPB ONE ×2 (09:40→11:49)
[2024-02-01] MEDS: Potassium Chloride LIQUID 20 MEQ/15 ML LIQUID PO ONE (11:04)
[2024-02-01] MEDS: Potassium Chlor 20 meq TAB.ER PO ONE (12:13)
[2024-02-01 13:46] VITALS: BP 135/86
== END 2024-02-01 14:25 | disposition home or self-care (01) ==
LOC: ED 12:51 → EDHOLD 12:51 → SUATTDRO 21:17 → MED 01-31 14:49
PROVIDERS: ADMIT Internal Medicine; ATTEND Hospitalist

== ENCOUNTER 2024-03-04 16:47 | Inpatient (IN) ==
[2024-03-04] MEDS ORDERED: Succinylcholine 200 mg VIAL 20 mg/ml 10 ml VIAL (200 mg) ONE (17:00)
[2024-03-04] MEDS ORDERED: Rocuronium 50 mg VIAL 10 mg/ml 5 ml VIAL (50 mg) ONE ×3 (17:00→17:07)
[2024-03-04] MEDS ORDERED: Etomidate 40 mg/20 ml (2 MG/ML) 20 ml VIAL (40 mg) ONE (17:07)
[2024-03-04] MEDS: Lactated Ringers 1000 ml BAG 1,000 ML IV ONE (17:10)
[2024-03-04 17:50] LABS: INR 1.07 (0.85-1.14)
[2024-03-04] MEDS ORDERED: Vancomycin 1,250 MG in NS 0.9% 250 ml 250 ML IVPB SCH (18:00)
[2024-03-04 18:02] LABS: High Sens Troponin Baseline 36 pg/mL (<15)
[2024-03-04 18:03] LABS: Hematocrit 39.2 % (35-45); Hemoglobin 12.6 g/dL (11.5-14.3); Mean Corpuscular Hemoglobin 28.7 pg (27-33); Mean Corpuscular Volume 89.7 fL (80-97); Mean Platelet Volume 7.6 fL (7.5-11.2); Platelet Count 208 10^3/uL (150-450); Red Blood Count 4.37 10^6/uL (3.63-4.92); Red Cell Distribution Width 18.6 % (12-17)
[2024-03-04 18:10] LABS: ALT 45 U/L (7-52); AST 36 U/L (13-39); Albumin 2.9 g/dL (3.2-5.2); Albumin/Globulin Ratio 1.5 (1-3); Alkaline Phosphatase 128 U/L (35-149); Anion Gap 14 mmol/L (2-16); Blood Urea Nitrogen 25 mg/dL (6-24); CO2 Carbon Dioxide 30 mmol/L (22-32); CRP High Sensitivity > 80.00 mg/L (<2.00); Calcium 9.3 mg/dL (8.6-10.3); Chloride 112 mmol/L (101-111); Creatine Kinase 66 U/L (10-223); Creatinine, Serum 0.58 mg/dL (0.51-0.95); Glucose 81 mg/dL (70-100); Potassium 4.6 mmol/L (3.5-5.0); Sodium 156 mmol/L (135-145); Total Bilirubin 0.6 mg/dL (0.2-1.0); Total Protein 4.9 g/dL (6.4-8.9); eGFR CKD-EPI 95.5 (>60)
[2024-03-04] MEDS: Iodixanol (CONTRAST) 320 MG/ML 100 ML SDV IV ONE (18:11)
[2024-03-04 18:21] LABS: Resp Rate 18
[2024-03-04 18:24] LABS: TSH Ultra Thyroid Stim Horm 4.63 mcIU/mL (0.34-5.60)
[2024-03-04 18:24] LABS: PCO2 Arterial 35 mmHg (35-45); PO2 Arterial 242 mmHg (80-100)
[2024-03-04 18:28] LABS: Prolactin 6.4 ng/mL (1.0-25.0)
[2024-03-04] MEDS: Piperacillin/Tazobac 3.375 BAG 3.375 GM/100 ML BAG IV ONE (18:34)
[2024-03-04] MEDS: LEVETIRACETAM 1000 MG IVPB ONE (18:34)
[2024-03-04] MEDS ORDERED: Atropine 0.1 MG/ML 10 ml SYR (1 mg) ONE (19:03)
[2024-03-04] MEDS: Atropine 1 MG/ML INJ 1 ML VIAL IV PUSH PRN (19:06)
[2024-03-04 19:25] LABS: ABS Basophils 0.1 10^3/uL (0.0-0.1); ABS Lymphocytes 0.3 10^3/uL (1.0-4.8); ABS Monocytes 0.6 10^3/uL (0.0-0.9); ABS Neutrophils 13.3 10^3/uL (1.5-7.6); Anisocytosis 1+; Eosinophil % 0.1 %; Hypochromasia 1+; Lymphocyte % 2.3 %; Nucleated Red Blood Cells % 1.4 %/100WBC (0.0-0.8); White Blood Count 14.3 10^3/uL (3.8-11.8)
[2024-03-04 19:43] LABS: High Sensitivity Troponin 1 Hr 26 pg/mL (<15)
[2024-03-04 22:00] LABS: Urine Appearance Clear; Urine Bilirubin Negative (Negative); Urine Blood Negative (Negative); Urine Color Yellow; Urine Glucose Negative (Negative); Urine Ketones 2+ (Negative); Urine Nitrite Negative (Negative); Urine Protein Trace (Negative); Urine Urobilinogen Negative (Negative)
[2024-03-04] MEDS ORDERED: Zosyn per Pharmacy NOTE FOLLOW UP SCH (22:00)
[2024-03-04] MEDS: Pantoprazole VIAL 40 MG VIAL IV SCH (22:30)
[2024-03-04] MEDS: D5W 1000 ml BAG 1,000 ML IV SCH (22:36)
[2024-03-04] MEDS ORDERED: D5W 1000 ml BAG 1,000 ML IV SCH (23:00)
[2024-03-04] MEDS ORDERED: Vancomycin per Pharmacy 1 EA NOTE FOLLOW UP SCH (23:00)
[2024-03-04] MEDS ORDERED: Norepinephrine 4 MG/250mL D5W 4,000 MCG/250 ML BAG IV ONE (23:47)
[2024-03-04] MEDS: Norepinephrine 4 MG/250mL NS 4,000 MCG/250 ML BAG IV SCH (23:52)
[2024-03-05] MEDS: Chlorhexidine MOUTHWASH 0.12% 15 ML UDC SWISH SPIT SCH (00:11)
[2024-03-05] MEDS: Vancomycin 1,250 MG in NS 0.9% 250 ml 250 ML IVPB ONE (00:12)
[2024-03-05] MEDS: ZOSYN 3.375 GM Q8H per EXTENDED INFUSION IV SCH ×2 (00:34→00:38)
[2024-03-05 00:55] LABS: Cholesterol 253 mg/dL; HDL Cholesterol 109.8 mg/dL; LDL Cholesterol 124 mg/dL; Triglycerides 98 mg/dL
[2024-03-05 01:43] LABS: Urine Benzodiazepine Screen None Detected (None Detect); Urine Cannabinoids Screen None Detected (None Detect); Urine Opiates Screen None Detected (None Detect)
[2024-03-05] MEDS ORDERED: Sulfur Hexaflouride MICROSPHR 25 MG VIAL IV PRN (01:59)
[2024-03-05] MEDS: Enoxaparin 40 MG/0.4 ML SYR SUBCUT SCH (02:51)
[2024-03-05 04:52] LABS: ALT 32 U/L (7-52); AST 26 U/L (13-39); Albumin 2.1 g/dL (3.2-5.2); Albumin/Globulin Ratio 1.4 (1-3); Alkaline Phosphatase 94 U/L (35-149); Anion Gap 13 mmol/L (2-16); Blood Urea Nitrogen 25 mg/dL (6-24); CO2 Carbon Dioxide 25 mmol/L (22-32); Calcium 8.1 mg/dL (8.6-10.3); Chloride 115 mmol/L (101-111); Creatinine, Serum 0.57 mg/dL (0.51-0.95); Globulin 1.5 g/dL (2-4); Glucose 131 mg/dL (70-100); Magnesium 1.8 mg/dL (1.9-2.7); Potassium 3.2 mmol/L (3.5-5.0); Sodium 153 mmol/L (135-145); Total Bilirubin 0.7 mg/dL (0.2-1.0); Total Protein 3.6 g/dL (6.4-8.9); eGFR CKD-EPI 95.9 (>60)
[2024-03-05 05:16] LABS: Folate 7.56 ng/mL (5.90-24.80)
[2024-03-05 05:17] LABS: Vitamin B12 > 1450 pg/mL (180-914)
[2024-03-05] MEDS: Norepinephrine 4 MG/250mL NS 4,000 MCG/250 ML BAG IV SCH (05:36)
[2024-03-05] MEDS: KCL 20 MEQ/100 ML IVPREMIX 20 MEQ/100 ML BAG IV SCH (05:42)
[2024-03-05] MEDS: Magnesium Sulfate 2 gm BAG 2 GM/50 ML BAG IVPB ONE (05:57)
[2024-03-05] MEDS ORDERED: Piperacillin/Tazobac 3.375 BAG 3.375 GM/100 ML BAG IV ONE (06:00)
[2024-03-05] MEDS ORDERED: Vancomycin 1,000 MG in NS 0.9% 250 ml 250 ML IVPB ONE (06:00)
[2024-03-05 06:57] LABS: Hematocrit 33.5 % (35-45); Hemoglobin 10.6 g/dL (11.5-14.3); Mean Corpuscular Hgb Conc 31.6 g/dL (31-36); Mean Corpuscular Volume 88.8 fL (80-97); Red Blood Count 3.77 10^6/uL (3.63-4.92); Red Cell Distribution Width 18.6 % (12-17)
[2024-03-05 07:11] LABS: White Blood Count 6.7 10^3/uL (3.8-11.8)
[2024-03-05 07:12] LABS: Mean Platelet Volume 7.9 fL (7.5-11.2); Platelet Count 192 10^3/uL (150-450)
[2024-03-05 07:13] LABS: ABS Lymphocytes 0.2 10^3/uL (1.0-4.8); ABS Monocytes 0.4 10^3/uL (0.0-0.9); ABS Neutrophils 6.1 10^3/uL (1.5-7.6); ABS Nucleated RBC 0.37 10^3/ul; Eosinophil % 0.1 %; Lymphocyte % 2.8 %; Nucleated Red Blood Cells % 5.5 %/100WBC (0.0-0.8)
[2024-03-05 07:14] LABS: Anisocytosis 1+
[2024-03-05] MEDS: Norepinephrine 4 MG/250mL D5W 4,000 MCG/250 ML BAG IV ONE (07:38)
[2024-03-05] MEDS: Norepinephrine 4 MG/250mL D5W 4,000 MCG/250 ML BAG IV SCH (07:45)
[2024-03-05] MEDS: EPINEPHrine SYR 0.1MG/ML 10 ml SYRINGE IV ONE ×3 (08:52→10:26)
[2024-03-05] MEDS: VASOPRESSIN IVPREMIX BTL 40 UNIT/100 ML BTL IV SCH (09:17)
[2024-03-05] MEDS: Norepinephrine *QUAD STRENGTH* 16 mg/250 mL NS PREMIX (ICU ONLY) IV SCH (09:17)
[2024-03-05] MEDS: Midazolam PREMIXBAG 1 MG/ML NS 100 ML IV SCH (10:15)
[2024-03-05] MEDS: Hydrocortisone INJ 100 MG/2ML 2 ML VIAL IV SCH ×2 (10:16→17:17)
[2024-03-05] MEDS: Vasopressin 100 UNITS in D5W 250 ml BAG 245 ML IV SCH (10:17)
[2024-03-05 10:31] LABS: Venous Bicarbonate HCO3 21.9 mmol/L (24-28)
[2024-03-05] MEDS: Hydrocortisone INJ 100 MG/2ML 2 ML VIAL IV ONE (10:34)
[2024-03-05 11:01] LABS: Albumin 2.5 g/dL (3.2-5.2); Albumin/Globulin Ratio 1.4 (1-3); Calcium 8.2 mg/dL (8.6-10.3); Creatinine, Serum 0.9 mg/dL (0.51-0.95); Globulin 1.8 g/dL (2-4); Magnesium 2.1 mg/dL (1.9-2.7); Phosphorus 2.4 mg/dL (2.5-5.0); Total Bilirubin 0.6 mg/dL (0.2-1.0); Total Protein 4.3 g/dL (6.4-8.9); eGFR CKD-EPI 67.5 (>60)
[2024-03-05 11:12] LABS: ABS Basophils 0.2 10^3/uL (0.0-0.1); ABS Lymphocytes 0.4 10^3/uL (1.0-4.8); ABS Monocytes 2.3 10^3/uL (0.0-0.9); ABS Neutrophils 20.5 10^3/uL (1.5-7.6); ABS Nucleated RBC 1.94 10^3/ul; Eosinophil % 0.1 %; Hematocrit 37.4 % (35-45); Hemoglobin 12.1 g/dL (11.5-14.3); Lymphocyte % 1.6 %; Mean Corpuscular Hemoglobin 28.7 pg (27-33); Mean Corpuscular Hgb Conc 32.4 g/dL (31-36); Mean Corpuscular Volume 88.6 fL (80-97); Mean Platelet Volume 7.7 fL (7.5-11.2); Nucleated Red Blood Cells % 8.3 %/100WBC (0.0-0.8); Platelet Count 218 10^3/uL (150-450); Red Blood Count 4.22 10^6/uL (3.63-4.92); Red Cell Distribution Width 19.2 % (12-17); White Blood Count 23.4 10^3/uL (3.8-11.8)
[2024-03-05] MEDS: Vancomycin 750 MG in NS 0.9% 250 ML IVPB SCH (13:34)
[2024-03-05] MEDS: EPINEPHrine 1 MG/ML MDV 5 MG in D5W 250 ml BAG 245 ML IV SCH (13:49)
[2024-03-05 16:05] LABS: Resp Rate 18
[2024-03-05 16:09] LABS: PCO2 Arterial 36 mmHg (35-45)
[2024-03-05 16:14] LABS: PO2 Arterial 53 mmHg (80-100)
[2024-03-05 17:07] LABS: Calcium 7.9 mg/dL (8.6-10.3); Creatinine, Serum 0.86 mg/dL (0.51-0.95); Potassium 4.3 mmol/L (3.5-5.0); eGFR CKD-EPI 71.3 (>60)
[2024-03-05] MEDS: Erythromycin OPTH OINT APPLIC OINT LEFT EYE SCH (22:25)
[2024-03-06 04:44] LABS: Creatinine, Serum 1.1 mg/dL (0.51-0.95); Magnesium 2.2 mg/dL (1.9-2.7); Phosphorus 3.6 mg/dL (2.5-5.0); Potassium 4.7 mmol/L (3.5-5.0); eGFR CKD-EPI 53.1 (>60)
[2024-03-06 05:24] LABS: Hematocrit 32.3 % (35-45); Hemoglobin 10.4 g/dL (11.5-14.3); Mean Corpuscular Hemoglobin 28.2 pg (27-33); Mean Corpuscular Hgb Conc 32.3 g/dL (31-36); Mean Corpuscular Volume 87.4 fL (80-97); Red Blood Count 3.69 10^6/uL (3.63-4.92); Red Cell Distribution Width 18.3 % (12-17); White Blood Count 44.3 10^3/uL (3.8-11.8)
[2024-03-06 07:10] LABS: Mean Platelet Volume 7.9 fL (7.5-11.2); Platelet Count 170 10^3/uL (150-450)
[2024-03-06 07:18] LABS: ABS Basophils 0.3 10^3/uL (0.0-0.1); ABS Lymphocytes 5.8 10^3/uL (1.0-4.8); ABS Monocytes 1.7 10^3/uL (0.0-0.9); ABS Neutrophils 36.5 10^3/uL (1.5-7.6); ABS Nucleated RBC 0.91 10^3/ul; Anisocytosis 1+; Lymphocyte % 13.1 %; Nucleated Red Blood Cells % 2.1 %/100WBC (0.0-0.8)
[2024-03-06] MEDS: Cefepime 2 GM in Dextrose 2 GM/50 ML BAG IV SCH (10:20)
[2024-03-06] MEDS: metroNIDAZOLE IV 500 MG/100ML 500 MG/100 ML BAG IVPB SCH (10:31)
[2024-03-06] MEDS: Ampicillin ADVAN 2 GM in NS 0.9% 100 ml BAG 100 ML IVPB SCH (11:02)
[2024-03-06] MEDS: Acyclovir IV 570 MG in NS 0.9% 100 ml BAG 100 ML IVPB SCH (11:06)
[2024-03-06] MEDS: Vancomycin Trough Check NOTE FOLLOW UP ONE (12:12)
[2024-03-06] MEDS: Vancomycin 1,250 MG in NS 0.9% 250 ml 250 ML IVPB SCH (13:10)
[2024-03-06 18:19] LABS: Calcium 6.9 mg/dL (8.6-10.3); Creatinine, Serum 1.06 mg/dL (0.51-0.95); Potassium 4.2 mmol/L (3.5-5.0); eGFR CKD-EPI 55.5 (>60)
[2024-03-07 04:41] LABS: Mean Corpuscular Hemoglobin 27.6 pg (27-33); Mean Corpuscular Hgb Conc 32.2 g/dL (31-36); Mean Corpuscular Volume 85.6 fL (80-97); Mean Platelet Volume 8.7 fL (7.5-11.2); Platelet Count 128 10^3/uL (150-450); Red Blood Count 3.28 10^6/uL (3.63-4.92); Red Cell Distribution Width 18.2 % (12-17); White Blood Count 39.3 10^3/uL (3.8-11.8)
[2024-03-07 05:19] LABS: Calcium 7.4 mg/dL (8.6-10.3); Creatinine, Serum 1.29 mg/dL (0.51-0.95); Magnesium 2.1 mg/dL (1.9-2.7); Phosphorus 3.7 mg/dL (2.5-5.0); Potassium 4.4 mmol/L (3.5-5.0); eGFR CKD-EPI 43.8 (>60)
[2024-03-07 05:48] LABS: ABS Basophils 0.2 10^3/uL (0.0-0.1); ABS Lymphocytes 0.4 10^3/uL (1.0-4.8); ABS Monocytes 1.7 10^3/uL (0.0-0.9); ABS Nucleated RBC 0.23 10^3/ul; Eosinophil % 0.1 %; Nucleated Red Blood Cells % 0.6 %/100WBC (0.0-0.8)
[2024-03-07 12:31] LABS: Creatinine, Serum 1.33 mg/dL (0.51-0.95); Vancomycin Random 24.1 mcg/mL; eGFR CKD-EPI 42.2 (>60)
[2024-03-07] MEDS: VASOPRESSIN IVPREMIX BTL 40 UNIT/100 ML BTL IV ONE (20:06)
[2024-03-07] MEDS: Atropine 0.1 MG/ML 10 ml SYR (1 mg) ONE (20:06)
[2024-03-08 02:53] LABS: Resp Rate 10
[2024-03-08 02:57] LABS: PCO2 Arterial 41 mmHg (35-45); PO2 Arterial 68 mmHg (80-100)
[2024-03-08 03:26] LABS: Hematocrit 26.7 % (35-45); Hemoglobin 8.5 g/dL (11.5-14.3); Mean Corpuscular Hemoglobin 27.7 pg (27-33); Mean Corpuscular Hgb Conc 31.9 g/dL (31-36); Mean Corpuscular Volume 86.7 fL (80-97); Red Blood Count 3.07 10^6/uL (3.63-4.92); Red Cell Distribution Width 17.8 % (12-17); White Blood Count 31.4 10^3/uL (3.8-11.8)
[2024-03-08 03:38] LABS: ABS Basophils 0.1 10^3/uL (0.0-0.1); ABS Lymphocytes 0.4 10^3/uL (1.0-4.8); ABS Nucleated RBC 0.23 10^3/ul; Lymphocyte % 1.2 %; Nucleated Red Blood Cells % 0.7 %/100WBC (0.0-0.8); Platelet Count 85 10^3/uL (150-450)
[2024-03-08 04:09] LABS: Calcium 7.4 mg/dL (8.6-10.3); Creatinine, Serum 1.55 mg/dL (0.51-0.95); Magnesium 2.2 mg/dL (1.9-2.7); Potassium 4.5 mmol/L (3.5-5.0); Vancomycin Random 21.3 mcg/mL; eGFR CKD-EPI 35.2 (>60)
[2024-03-08] MEDS: Vancomycin Random Level NOTE FOLLOW UP ONE (09:38)
[2024-03-08] MEDS ORDERED: Vancomycin Random Level NOTE FOLLOW UP ONE (12:30)
[2024-03-08 15:45] VITALS: BP 99/61
[2024-03-08] MEDS: fentaNYL 100 mcg/2 ml 50 MCG/ML VIAL IV SLOW PU PRN (21:36)
[2024-03-08] MEDS: Albumin Human 25% 25 GM/100 ML BTL IV ONE (22:39)
[2024-03-08] MEDS: Furosemide 40 mg/4 ml IV VIAL IV ONE (22:39)
[2024-03-08] MEDS: Albumin Human 25% 0 GM/0 ML BTL IV ONE (23:16)
[2024-03-08] MEDS: Furosemide 40 mg/4 ml IV VIAL ONE (23:36)
[2024-03-09 06:28] LABS: Calcium 7.7 mg/dL (8.6-10.3); Creatinine, Serum 1.9 mg/dL (0.51-0.95); Magnesium 2.3 mg/dL (1.9-2.7); Potassium 4.9 mmol/L (3.5-5.0); Vancomycin Random 18.8 mcg/mL; eGFR CKD-EPI 27.5 (>60)
[2024-03-09 07:10] LABS: Hematocrit 26.1 % (35-45); Hemoglobin 8.5 g/dL (11.5-14.3); Mean Corpuscular Hemoglobin 28.5 pg (27-33); Mean Corpuscular Hgb Conc 32.5 g/dL (31-36); Mean Corpuscular Volume 87.6 fL (80-97); Mean Platelet Volume 9.1 fL (7.5-11.2); Platelet Count 58 10^3/uL (150-450); Red Blood Count 2.97 10^6/uL (3.63-4.92); Red Cell Distribution Width 17.8 % (12-17); White Blood Count 24.7 10^3/uL (3.8-11.8)
[2024-03-09 07:11] LABS: ABS Basophils 0.1 10^3/uL (0.0-0.1); ABS Lymphocytes 0.3 10^3/uL (1.0-4.8); ABS Monocytes 0.8 10^3/uL (0.0-0.9); ABS Neutrophils 23.6 10^3/uL (1.5-7.6); ABS Nucleated RBC 0.18 10^3/ul; Lymphocyte % 1.3 %; Nucleated Red Blood Cells % 0.7 %/100WBC (0.0-0.8)
[2024-03-09] MEDS: Vancomycin Random Level NOTE FOLLOW UP ONE (07:59)
[2024-03-09] MEDS ORDERED: Lorazepam PYXIS KEY PRN (10:30)
[2024-03-09] MEDS: Morphine 10 MG/ML VIAL (1 ml) IV SCH (10:45)
[2024-03-09] MEDS: LORazepam 2 mg VIAL 1 ml IV PUSH SCH (10:46)
== END 2024-03-09 11:05 | disposition expired | DRG 870 ==
LOC: ED 16:47 → EDHOLD 21:57 → ICU 23:45
PROVIDERS: ADMIT Student in an Organized Health Care Education/Training Program; ATTEND Internal Medicine Critical Care Medicine